=== PATIENT | male | born 1950 | race Caucasian/White ===

== ENCOUNTER 2019-05-18 08:45 | Outpatient (CLI) | payer MEDICARE, SELFPAY ==
--- NOTE | ~2019-05-18 | CT_ITS ---
EXAMINATION: CT abdomen pelvis wo con EXAM DATE: 05/18/2019 09:46 INDICATION: Urothelial cancer, bladder cancer. TECHNIQUE: Spiral CT of the abdomen and pelvis was performed without contrast. Axial, coronal and s agittal images were reviewed. The dose-length product (DLP) for this examination was 355.01 mGy-cm. The exposure was tailored according to patient size (auto mA exposure control), and iterative recons truction (ASIR) was used as additional dose reduction technique. Comparison is made to prior examinat ion from 02/07/2019. FINDINGS: Liver fluid density lesions consistent with cysts up to 2 cm. There is aortoiliac endograft with the abdominal aorta measuring up to 5.0 cm, stable or minimally decreased in size compared to p rior study. Spleen, pancreas, adrenal glands are unremarkable. Patient has bilateral ureteral stents extending through right lower quadrant ileostomy. There is no hydronephrosis. Previous exam reported hyperdense mass at the lower pole of the right kidney which measured near 200 Hounsfield units on the postcontrast study and about 10 mm in size. Size is unchanged and today on th is noncontrast study it measures about 100 Hounsfield units, could be a hemorrhagic cyst. There is a similar appearing 4 mm lesion along the posterior cortex of this kidney as well. Difficult to exclude small solid neoplasm. There are other renal lesions consistent with cysts and hemorrhagic cysts. Ga llbladder is unremarkable. No biliary obstruction. Prostatectomy and cystectomy. There is no retro peritoneal or pelvic lymphadenopathy. Status post pelvic lymph node dissection. The appendix is not positively visualized. There is no pericecal inflammatory change to suggest appe ndicitis. There is mild sigmoid colonic diverticulosis. There is no adjacent inflammatory change to suggest diverticulitis. The stomach and small bowel are unremarkable. There is expected amount of co lonic stool. No free intraperitoneal gas. The heart is normal in size. There are no pericardial or pleural effusions. Several left lung base calcified granulomas. There are no osteoblastic or ost eolytic lesions identified. IMPRESSION: 1. No evidence of metastatic disease. 2. Stable renal lesions which could be cysts and hemorrhagic cysts. Difficult to exclude small right renal solid cancer. Reviewed, dictated and finalized at location A. FIXER
[2019-05-18 09:30] LABS: Blood Urea Nitrogen 32 mg/dL (8-26); Estimated Glomerular Filt Rate 25
== END 2019-05-18 08:46 | disposition home or self-care (01) ==
PROVIDERS: Visit Provider Internal Medicine Hematology & Oncology
DX: C67.9 Malignant neoplasm of bladder, unspecified (principal)
CPT/HCPCS: 74176

== ENCOUNTER 2019-10-02 13:21 | Outpatient (CLI) | payer MEDICARE, SELFPAY ==
--- NOTE | ~2019-10-02 | CT_ITS ---
EXAMINATION: CT abdomen pelvis wo con DATE: 10/02/2019 13:38 INDICATION: Urothelial carcinoma of bladder. TECHNIQUE: Computed tomography (CT) of the abdomen and pelvis was performed without intravenous contr ast. Automated exposure control and iterative reconstruction technique were employed. The dose-length product was 521.99 mGy-cm. COMPARISON: CT abdomen and pelvis 05/18/2019, 02/07/19, 09/20/18 FINDINGS: The visualized portions of the lung bases demonstrate calcified left lung nodules, consiste nt with old granulomatous disease. No pleural effusion. The heart size is normal. No pericardial effu mason. There are cysts in the liver measuring up to 2.1 cm. The gallbladder, pancreas, and adrenal gla nds are normal. Calcifications in the spleen are consistent with old granulomatous disease. There are cysts in right kidney measuring up to 2.6 cm. There are 2 hemorrhagic cysts in right kidney with the larger measuring 9 mm. There is an 11 mm mass in right kidney measuring soft tissue attenuation that was hyperdense on the postcontrast CT on 02/07/19 suspicious for renal cell carcinoma. There is a 1. 3 cm mass in left kidney measuring soft tissue attenuation with similar attenuation on the prior post contrast CT, likely a hemorrhagic cyst. There are changes of cystectomy with ileal conduit. There are bilateral internal/external ureteral stents. There is a 4.7 cm fusiform aneurysm of infrarenal aorta with stent graft in expected position, improved from 5.2 cm on 05/18/19. There is diverticulosis of t he colon without evidence of diverticulitis. There are no dilated loops of bowel. There are surgical clips from pelvic lymph node dissection. There are no pathologically enlarged lymph nodes. There is n o free intraperitoneal fluid. There is severe lumbar and lower thoracic spondylosis. IMPRESSION: 1. Stable 11 mm right kidney mass suspicious for renal cell carcinoma. Consider abdomen CT without an d with contrast. Reviewed, dictated and finalized at location A. IMPRESSION: 1. Stable 11 mm right kidney mass suspicious for renal cell carcinoma. Consider abdomen CT without and with contrast.
== END 2019-10-02 13:22 | disposition home or self-care (01) ==
PROVIDERS: Visit Provider Internal Medicine Hematology & Oncology
DX: C67.9 Malignant neoplasm of bladder, unspecified (principal); N28.89 Other specified disorders of kidney and ureter
CPT/HCPCS: 36415; 74176; 80053; 82570; 84100; 84156; 85025

== ENCOUNTER 2019-10-11 15:27 | Outpatient (CLI) | payer MEDICARE, SELFPAY | END 2019-10-11 15:28 | disposition home or self-care (01) | LOC: ANHLAB 15:28 | PROVIDERS: Visit Provider Internal Medicine Hematology & Oncology | DX: R39.9 Unspecified symptoms and signs involving the genitourinary system (principal) | CPT/HCPCS: 87086; 87088 ==

== ENCOUNTER 2020-02-01 10:21 | Outpatient (CLI) | payer MEDICARE, SELFPAY ==
--- NOTE | ~2020-02-01 | CT_ITS ---
EXAMINATION: CT abdomen pelvis wo con DATE: 02/01/2020 10:39 INDICATION: Urothelial carcinoma of the bladder TECHNIQUE: Computed tomography (CT) of the abdomen and pelvis was performed without intravenous contr ast. The dose-length product (DLP) was 597.88 mGy-cm. Automated exposure control and iterative recons truction technique were employed. COMPARISON: 10/02/2019, 02/07/2019 FINDINGS: Minimal dependent atelectasis is present in the lung bases. The heart size is normal. Cysts of the liver measure up to 2.1 cm in the right hepatic lobe. Punctate calcifications in an otherwise normal spleen likely represent healed granulomatous disease. The pancreas, gallbladder, and adrenal glands are normal. Internal ureteral stents have been removed. An ileal conduit of the right mid abdo men is noted. There is an unchanged 11 mm exophytic mass of the posterolateral right kidney lower robin e. Cysts of the right kidney measure up to 2.6 cm. Again noted are hemorrhagic cysts of the right kid arleen which measure up to 7 mm. An unchanged 11 mm lesion of the left kidney does not demonstrate signi ficant attenuation change when compared to prior contrast enhanced CT, likely proteinaceous cyst. The re are changes of cystectomy. An endoluminal bifurcated aortobiiliac stent graft is noted. Maximum an eurysm size is approximately 4.4 cm, previously 4.7 cm. No pathologically enlarged abdominal or pelvi c lymph nodes are identified. There is no free intraperitoneal gas or evidence of bowel obstruction. Colonic diverticulosis is present without evidence of diverticulitis. There is severe lumbar spondylo sis. IMPRESSION: 1. Changes of cystectomy and ileal conduit formation with interval bilateral internal ureteral stent removal. 2. Stable right kidney mass which could reflect renal cell carcinoma. Follow-up by CT or MRI without and with contrast is recommended. Reviewed, dictated and finalized at location A. TS CARTOONIST IMPRESSION: 1. Changes of cystectomy and ileal conduit formation with interval bilateral in ternal ureteral stent removal. 2. Stable right kidney mass which could reflect renal cell carcinoma. Follow-up by CT or MRI without and with contrast is recommended.
[2020-02-01 10:58] LABS: Basophils Absolute Auto 0.1 K/mm3 (0.0-0.1); Basophils Percent Auto 1.3 % (0.2-1.2); Eosinophils Absolute Auto 0.2 K/mm3 (0-0.3); Eosinophils Percent Auto 3.1 % (0-4.4); Hematocrit 44.7 % (42.0-52.0); Hemoglobin 14.8 g/dL (14.0-18.0); Immature Granulocyte Absolute 0.01 K/mm3 (0.00-0.031); Immature Granulocyte Percent A 0.2 % (0-0.5); Lymphocytes Absolute Auto 1.12 K/mm3 (0.9-3.2); Lymphocytes Percent Auto 20.2 % (18.3-44.2); Mean Corpuscular HGB Conc 33.1 g/dl (32-36); Mean Corpuscular Hemoglobin 30.4 pg (26-34); Mean Corpuscular Volume 91.8 fl (80-100); Mean Platelet Volume 10.7 fl (7.4-10.4); Monocytes Absolute Auto 0.5 K/mm3 (0.1-0.6); Monocytes Percent Auto 8.1 % (2.6-8.5); Neutrophils Absolute Auto 3.7 K/mm3 (1.3-6.7); Neutrophils Percent Auto 67.1 % (45.5-73.1); Platelet Count Result 153 k/mm3 (150-375); Red Blood Count 4.87 M/mm3 (4.6-6.20); Red Cell Distribution Width 14.2 % (11.5-14.5); White Blood Count 5.6 K/mm3 (4.5-10.0)
[2020-02-01 15:04] LABS: Alanine Aminotransferase 15 U/L (4-50); Albumin Level 4.2 g/dL (3.5-5.1); Alkaline Phosphatase 77 U/L (38-126); Anion Gap 6 mmol/L (8-16); Aspartate Amino Transferase 23 U/L (17-59); Bilirubin,Total 0.6 mg/dL (0.2-1.3); Blood Urea Nitrogen 26 mg/dL (9-20); Calcium 9.2 mg/dL (8.4-10.2); Carbon Dioxide 29 mmol/L (22-30); Chloride 105 mmol/L (98-107); Estimated Glomerular Filt Rate 35; Glucose 104 mg/dL (75-110); Potassium 5.1 mmol/L (3.4-5.0); Sodium 140 mmol/L (137-145)
== END 2020-02-01 10:22 | disposition home or self-care (01) ==
PROVIDERS: Visit Provider Internal Medicine Hematology & Oncology
DX: C67.9 Malignant neoplasm of bladder, unspecified (principal)
CPT/HCPCS: 36415; 74176; 80053; 85025

== ENCOUNTER 2020-02-24 00:54 | Outpatient (CLI) | payer MEDICARE, SELFPAY ==
[2020-02-24 18:31] LABS: SARS-CoV-2 RNA PCR Negative
== END 2020-02-24 00:55 | disposition home or self-care (01) ==
LOC: ANHCOVIDDT 00:55
PROVIDERS: Visit Provider Surgery
DX: Z01.812 Encounter for preprocedural laboratory examination (principal); Z20.828 Contact with and (suspected) exposure to other viral communicable diseases
CPT/HCPCS: 87635; C9803; U0003

== ENCOUNTER 2020-02-28 02:57 | Day surgery (SDC) | payer MEDICARE, SELFPAY ==
[2020-02-21 15:52] VITALS: BMI 24.0
[2020-02-28] VITALS (7 sets, daily range): BP systolic 131–151; BP diastolic 66–87; PULSE 47–68; RESP 14–16; TEMP 36.6; O2SAT 96–99
--- NOTE | 2020-02-28 12:55 | PM.HPGS ---
History of Present Illness History of Present Illness Consent: Risks, benefits, and alternatives Of removal of a Port-A-Cath have been discussed and questions answered. Patient agrees to proceed with procedure. Chief complaint: Urethral CA of Bladder Narrative: Luciano Juárez is a 69 year old male patient who had is now I urine half status post cysto prostatectomy done October 17, 2018. He then underwent Port-A-Cath placement and subsequent adjuvant concurrent chemoradiation therapy with cisplatin Um and radiation to the pelvis in the which finished on January [address] scan was done on over the January 31 showing no recurrence of disease related to the previous cystectomy although there is a stable right kidney mass. Dr. Kendall has approved the patient have his Port-A-Cath removed. Review of Systems Constitutional: Constitutional: Reports no additional constitutional complaints, Reports fatigue and Denies malaise Eyes: Eyes: Denies change in vision and Denies loss of vision ENT: Reports Normal hearing present, Denies change in voice, Denies dizziness, Denies hoarseness and Denies sore throat Cardiovascular: Cardiovascular: Denies chest pain, Denies leg edema and Denies dyspnea Respiratory: Respiratory: Denies cough, Denies dyspnea and Denies wheezing Gastrointestinal: Gastrointestinal: Denies hematochezia, Denies change in bowel habits and Denies heartburn Genitourinary: Genitourinary: Denies urinary frequency and Denies urinary incontinence Neurologic: Reports Normal hearing present, Denies confusion, Denies dizziness, Denies loss of vision, Denies memory loss and Denies seizure-like activity Psychiatric: Psychiatric: Denies confusion, Denies depression and Denies memory loss Endocrine: Endocrine: Denies cold intolerance and Reports fatigue Hematologic/Lymphatic: Hematologic/Lymphatic: Denies easy bleeding and Denies easy bruising Allergic/Immunologic: Allergic/Immunologic: Denies wheezing PMFSH Past Medical History Medical History Port-A-Cath in place (~09/26/18) Social History Social History Smoking packs per day: 1 Smoking cigarettes per day: 20.0 Years smoked: 12 Smoking pack-years: 12.00 Smoking status: Former smoker Tobacco type: cigarettes Smoking end date: 03/29/99 Living arrangements: with friend(s) Spiritual care concerns: No Comments family history: No contributing factors found on questioning. Meds Home Medications and Allergies Home Medications Medication Instructions Recorded Confirmed Type aspirin [Aspir-81] 81 mg PO DAILY 01/19/19 02/28/20 History atorvastatin 40 mg PO DAILY 01/19/19 02/28/20 History carvedilol 12.5 mg PO BID 01/19/19 02/28/20 History zinc sulfate 110 mg PO DAILY 01/19/19 02/28/20 History Allergies Allergy/AdvReac Type Severity Reaction Status Date / Time No Known Allergies Allergy Unknown NONE Verified 02/21/20 15:31 Exam Const: General: cooperative, healthy appearing, no acute distress, well developed and alert; No confusion Nutritional Appearance: well nourished Orientation/consciousness: patient oriented x3 and No confusion Limitations: no limitations HENMT: Head: normal to inspection, normocephalic and atraumatic Ears: hearing grossly normal bilaterally General nose exam: Normal external nose present Face and sinus: no edema Mouth: Yes Normal oral and palatal mucosa present and Yes lip normal Throat: posterior oropharynx normal Eyes: General: appearance normal, both eyes and all related structures Sclera: sclerae normal Pupils: Equal, round and reactive pupils present EOM: EOMs intact bilaterally Neck: Neck: normal visual inspection, no lymphadenopathy, trachea midline and supple Resp: Effort & Inspection: normal respiratory effort and able to speak in complete sentences Auscultation: clear to ausculta
--- NOTE | 2020-02-28 13:33 | WPDHPUPDATE1 ---
History and Physical Update Update Date/Time: 02/28/20 13:33 History and Physical has been reviewed, including an updated exam of the patient. There are NO changes in the patient's condition. Risks, benefits, and alternatives have been discussed and questions answered. Patient agrees to proceed with procedure.
[2020-02-28] MEDS: LIDO 2%/EPINEPHRINE 1:100,000 20 ML VIAL 8 ML INFILTRATE (13:57)
--- NOTE | 2020-02-28 14:26 | PM.PROC ---
Procedure Note - Detailed Date of procedure: 02/28/20 Pre-op diagnosis: Urethral CA of Bladder Indwelling Port-A-Cath Procedure performed: Removal of Port-A-Cath Description of procedure: Prior to the procedure the patient was seen in the holding area and the area of proposed surgery was marked. All questions were answered and the patient wished to proceed with removal of the Port-A-Cath. The patient was brought to the operating room and placed supine. The entire right neck, chest, and shoulder were prepped with chlorhexidine. The area was draped off. Time-out was performed confirming patient and site of surgery. Following this a 15 blade knife was used to make incision directly on the scar from the previous port placement. This was done after infiltrating local anesthetic into the area of and inferior to the scar and into the area of the pocket containing the port to some degree using 1% xylocaine with epinephrine. Following this we carefully dissected down to the junction of the port and catheter. Bovie cautery with needle-tip was used to carefully incise the capsule around the port and free up the scar tissue around the junction of the port and catheter. Two Prolene sutures that were holding the port to the underlying fascia were carefully excised with a 15 blade knife and mosquito hemostats. Following this the port was brought up and out of the pocket. Then watching the patient's respirations I carefully removed the catheter in one smooth pull while applying pressure in the lower right neck area at the catheter exit site as the patient was breathing out. Pressure was held for 1 minute. I used Bovie cautery on some the subcutaneous tissues as we waited for good clotting. Again hemostasis was checked in the wound using Bovie cautery for superficial hemostasis in the subcutaneous tissues. Following this closure was obtained with 2 layers. I used buried subcutaneous sutures of 3-0 Vicryl in the subcutaneous layer followed by a running subcuticular closure of 4-0 Vicrylon the skin. Patient tolerated the procedure well. Estimated blood loss was 3 cc Sponge, needle, and instrument counts were correct at the end the procedure and patient was taken to the outpatient recovery area in good condition. Anesthesia: local ( 2% xylocaine with epinephrine) Surgeon: Luciano Arvizu MD Tentering Machine Off Bearer: none Estimated blood loss (mL): 3 Drains: No Packing: No Pathology: none sent Complications: No immediate complications Condition: stable Disposition: other ( outpatient recovery area) Findings: Unremarkable port and catheter that were intact upon removal.
== END 2020-02-28 14:35 | disposition home or self-care (01) ==
PROVIDERS: Visit Provider Surgery
PROC: (CPT 36589; principal; 2020-02-28 15:30)
DX: Z45.2 Encounter for adjustment and management of vascular access device (principal); Z85.59 Personal history of malignant neoplasm of other urinary tract organ; Z92.21 Personal history of antineoplastic chemotherapy; Z92.3 Personal history of irradiation; Z87.891 Personal history of nicotine dependence
CPT/HCPCS: 36590

== ENCOUNTER 2020-06-20 08:17 | Outpatient (CLI) | payer MEDICARE, SELFPAY ==
--- NOTE | ~2020-06-20 | CT_ITS ---
EXAMINATION: CT abdomen pelvis w con DATE: 06/20/2020 09:01 INDICATION: Mid abdominal pain. History of urothelial carcinoma of bladder. Status post appendectomy. TECHNIQUE: Computed tomography (CT) of the abdomen and pelvis was performed without intravenous contr ast. Automated exposure control and iterative reconstruction technique were employed. Exam dose: 549 .05 mGy-cm total exam DLP. COMPARISON: 02/01/2020 CT abdomen pelvis FINDINGS: Several left lower lobe calcified pulmonary granulomas are noted, consistent with old pulmo nary granulomatous disease. No infiltrate or consolidation at the lung bases. Heart size appears within normal range. No pericardial or pleural effusion. Again noted are numerous cysts scattered throughout the left and right hepatic lobe as well as caudat e process, the largest measuring up to 2.5 cm. The gallbladder is present. No bile duct or pancreatic duct dilatation. No pancreatic mass lesion or calcification. Normal splenic size. Normal morphology of the adrenal glands. Occasional bilateral renal cysts, largest situated on the right, measuring up to 3 cm. The bilateral cysts are stable since 02/01/2020. Ileal conduit is noted; status post cystectomy. Descending thoracic aortic aneurysm, measuring up to 3.7 cm diameter. Infrarenal abdominal aortic ane urysm measures up to proxy 4.1 cm maximal diameter. There is an infrarenal endovascular stent of the abdominal aorta and common iliac arteries. No intraperitoneal or retroperitoneal or pelvic mass lesion or adenopathy or ascites. Diverticulosis of the sigmoid colon; no CT evidence of diverticulitis. No bowel obstruction, bowel wa ll thickening, pneumatosis or intraperitoneal free air is detected. Severe degenerative disease at L4-5 and L5-S1. Diffuse osteopenia. No suspicious osteolytic or osteob lastic lesions are noted. IMPRESSION: Numerous hepatic cysts Stable bilateral probable renal cysts Descending thoracic aortic aneurysm Infrarenal abdominal aortic aneurysm with endovascular aortobiiliac endovascular stent Status post cystectomy and ileal conduit; no hydronephrosis Diverticulosis of the sigmoid colon Reviewed, dictated and finalized at Location [facility]. Reviewed, dictated and finalized at location B. IMPRESSION: Numerous hepatic cysts Stable bilateral probable renal cysts Descending thoracic aortic aneurysm Infrarenal abdominal aortic aneurysm with endovascular aortobiiliac endovascula r stent Status post cystectomy and ileal conduit; no hydronephrosis Diverticulosis of the sigmoid colon
[2020-06-20 08:51] LABS: Estimated Glomerular Filt Rate 30
== END 2020-06-20 08:18 | disposition home or self-care (01) ==
LOC: ANHIMG 08:21
PROVIDERS: Visit Provider Internal Medicine Hematology & Oncology
DX: C67.9 Malignant neoplasm of bladder, unspecified (principal); Z90.49 Acquired absence of other specified parts of digestive tract; N28.1 Cyst of kidney, acquired; I71.4 Abdominal aortic aneurysm, without rupture; I71.6 Thoracoabdominal aortic aneurysm, without rupture; K57.30 Diverticulosis of large intestine without perforation or abscess without bleeding; M47.817 Spondylosis without myelopathy or radiculopathy, lumbosacral region; M85.88 Other specified disorders of bone density and structure, other site; K76.89 Other specified diseases of liver; Z95.828 Presence of other vascular implants and grafts
CPT/HCPCS: 74177; Q9967

== ENCOUNTER 2020-10-14 01:19 | Day surgery (SDC) | payer MEDICARE, SELFPAY ==
[2020-09-25 13:34] VITALS: BMI 24.4
[2020-10-14 09:31] VITALS: BP 126/53; PULSE 56; RESP 16; TEMP 35.7; O2SAT 99; BMI 23.2
[2020-10-14] MEDS: LACTATED RINGERS 1,000 ML 150 ML IV CONT (09:37)
--- NOTE | 2020-10-14 10:16 | P.PNAN_ITS ---
Anes - Initial Pre Proc Eval Procedure: Operation Date: 10/14/20 10:30 Proposed Procedures p Esophagogastroduodenoscopy & Screening Colonoscopy - Gen Meléndez MD Date/Time: 10/14/20 10:16 Surgeon: Gen Yi MD Pre Op Diagnosis: neoplasm screening, nausea Patient Data Age: 69 Gender: M Height: 1.88 m Weight: 82.2 kg Last Vital Signs Temp 96.3 F L 10/14/20 09:31 Pulse 56 L 10/14/20 09:31 Resp 16 10/14/20 09:31 BP 126/53 L 10/14/20 09:31 Pulse Ox 99 10/14/20 09:31 Allergies Allergy/AdvReac Type Severity Reaction Status Date / Time No Known Allergies Allergy Unknown NONE Verified 10/14/20 09:30 Home Medications Medication Instructions Recorded Confirmed Type aspirin [Aspir-81] 81 mg PO DAILY 01/19/19 10/14/20 History atorvastatin 40 mg PO DAILY 01/19/19 10/14/20 History carvedilol 12.5 mg PO BID 01/19/19 10/14/20 History zinc sulfate 110 mg PO DAILY 01/19/19 10/14/20 History atorvastatin 40 mg tablet 40 mg PO DAILY 08/01/20 10/14/20 History docusate sodium 100 mg capsule 100 mg PO BID 08/01/20 10/14/20 History Patient hx anesthesia problems: none Family hx anesthesia problems: none PMFSH Past Medical History Medical History (Updated 08/01/20 @ 14:32 by Gen Yi MD) Colon cancer screening Nausea Port-A-Cath in place (~09/26/18) Surgical History Surgical History (Updated 08/01/20 @ 14:32 by Gen Yi MD) History of removal of Port-a-Cath History of urostomy Social History Social History Smoking packs per day: 1 Smoking cigarettes per day: 20.0 Years smoked: 25 Smoking pack-years: 25.00 Smoking status: Former smoker Tobacco type: cigarettes Smoking end date: 03/29/99 Substance use: former Substance use type: marijuana Other substance usage details: every day user Living arrangements: with family Gender identity (if verbalized by the patient): Male Spiritual care concerns: No Anes - Eval Final PreProcedure Day of Procedure 10/14/20 10:16 Patient weight: normal Heart: bradycardia Lungs: clear to auscultation Airway: Mallampati scale class II Neurological: alert and oriented Last oral intake: >/= 8 hours ASA classification: III Emergent: no Anesthetic plan: proceed Anesthesia type and monitoring: general GIVS and standard monitoring Informed Consent: The patient's anesthetic plan and its attendant risks and benefits were discussed with the patient/family/POA. Questions were solicited and answers provided to the satisfaction of the patient/family/POA.
--- NOTE | 2020-10-14 10:17 | PM.HPGS ---
History of Present Illness History of Present Illness Consent: Risks, benefits, and alternatives have been discussed and questions answered. Patient agrees to proceed with procedure. Chief complaint: neoplasm screening, nausea Narrative: Luciano Juárez is a 69 year old male here for egd and colonoscopy. He was diagnosed in 2019 with with stage IIIA (pT4a N1 M0) 9.3 cm high grade invasive urothelial carcinoma. He is status post radical cystoprostatectomy, pelvic lymph node dissection, and bilateral cutaneous ureterostomy urinary diversion. He completed adjuvant pelvic radiotherapy and chemotherapy. He has chronic nausea and never had egd or colonoscopy. Review of Systems Constitutional: Constitutional: Denies headache(s) and Denies weakness Eyes: Eyes: Denies blurry vision ENT: Reports Normal hearing present, Denies headache(s) and Denies neck pain Cardiovascular: Cardiovascular: Denies chest pain and Denies dyspnea Respiratory: Respiratory: Denies dyspnea Gastrointestinal: Gastrointestinal: Reports no additional gastrointestinal complaints Genitourinary: Genitourinary: Denies dysuria Musculoskeletal: Musculoskeletal: Denies neck pain Integumentary/Breasts: Skin/Breast: Denies dry skin Neurologic: Reports Normal hearing present, Denies headache(s) and Denies weakness Psychiatric: Psychiatric: Denies anxiety Endocrine: Endocrine: Denies change in body appearance Hematologic/Lymphatic: Hematologic/Lymphatic: Denies easy bleeding Allergic/Immunologic: Allergic/Immunologic: Denies urticaria PMFSH Past Medical History Medical History (Updated 08/01/20 @ 14:32 by Gen Yi MD) Colon cancer screening Nausea Port-A-Cath in place (~09/26/18) Surgical History Surgical History (Updated 08/01/20 @ 14:32 by Gen Yi MD) History of removal of Port-a-Cath History of urostomy Social History Social History Smoking packs per day: 1 Smoking cigarettes per day: 20.0 Years smoked: 25 Smoking pack-years: 25.00 Smoking status: Former smoker Tobacco type: cigarettes Smoking end date: 03/29/99 Substance use: former Substance use type: marijuana Other substance usage details: every day user Living arrangements: with family Gender identity (if verbalized by the patient): Male Spiritual care concerns: No Meds Home Medications and Allergies Home Medications Medication Instructions Recorded Confirmed Type aspirin [Aspir-81] 81 mg PO DAILY 01/19/19 10/14/20 History atorvastatin 40 mg PO DAILY 01/19/19 10/14/20 History carvedilol 12.5 mg PO BID 01/19/19 10/14/20 History zinc sulfate 110 mg PO DAILY 01/19/19 10/14/20 History atorvastatin 40 mg tablet 40 mg PO DAILY 08/01/20 10/14/20 History docusate sodium 100 mg capsule 100 mg PO BID 08/01/20 10/14/20 History Allergies Allergy/AdvReac Type Severity Reaction Status Date / Time No Known Allergies Allergy Unknown NONE Verified 10/14/20 09:30 Vital Signs Vital Signs - 24 hr 10/14/20 09:31 Temperature 96.3 F L Pulse Rate 56 L Respiratory Rate 16 Blood Pressure 126/53 L Pulse Oximetry 99 Exam Const: General: comfortable and no acute distress HENMT: General nose exam: Normal nares present Eyes: General: appearance normal, both eyes and all related structures Neck: Neck: no JVD Resp: Auscultation: clear to auscultation bilaterally Cardio: Rate: regular rate Rhythm: regular rhythm GI: Inspection: non-distended GI Palp: Yes Soft to palpation Skin: General skin exam: normal color Neuro: General: gait normal Speech: normal speech Extrem: General: normal to inspection Psych: Mental Status: mental status grossly normal Assessment and Plan Assessment and plan (1) Nausea: Code(s): R11.0 - Nausea Status: Acute Assessment and Plan: egd with bx (2) Colon cancer screening: Code(s): Z12.11
[2020-10-14] MEDS: BENZOCAINE (*SP) 60 ML SPRAY CAN (HURRICAINE) 1 SPRAY MUCOUS MEM (10:27)
[2020-10-14 10:53] VITALS: BP 114/75; PULSE 48; RESP 15; O2SAT 99
[2020-10-14 11:03] VITALS: BP 115/70; PULSE 45; RESP 16; O2SAT 99
[2020-10-14 11:13] VITALS: BP 105/62; PULSE 52; RESP 19; O2SAT 100
[2020-10-14 11:23] VITALS: BP 138/74; PULSE 50; RESP 15; O2SAT 100
== END 2020-10-14 11:34 | disposition home or self-care (01) ==
PROVIDERS: Visit Provider Internal Medicine Gastroenterology
PROC: 0DJ08ZZ Inspection of Upper Intestinal Tract, Via Natural or Artificial Opening Endoscopic (ICD-10-PCS; CPT 43235; principal; 2020-10-14 10:30)
DX: Z12.11 Encounter for screening for malignant neoplasm of colon (principal); D12.3 Benign neoplasm of transverse colon; D12.4 Benign neoplasm of descending colon; K29.50 Unspecified chronic gastritis without bleeding; R11.0 Nausea; Z85.51 Personal history of malignant neoplasm of bladder; Z90.6 Acquired absence of other parts of urinary tract; Z93.6 Other artificial openings of urinary tract status; Z87.891 Personal history of nicotine dependence
CPT/HCPCS: 45385; 45380; 43239; 88305; 88342; J2704; J7120

== ENCOUNTER 2021-01-06 13:14 | Outpatient (CLI) | payer MEDICARE, SELFPAY ==
--- NOTE | ~2021-01-06 | CT_ITS ---
EXAMINATION: CT abdomen pelvis w con DATE: 01/06/2021 14:34 INDICATION: Urothelial bladder cancer TECHNIQUE: Computed tomography (CT) of the abdomen and pelvis was performed with 100 cc Omnipaque 350 intravenous contrast. Automated exposure control and iterative reconstruction technique were employe d. Exam dose: 437.60 mGy-cm total exam DLP. COMPARISON: 06/20/2020 CT abdomen pelvis FINDINGS: The lung bases are clear of infiltrate or consolidation. Normal heart size. No pericardial or pleural effusion. There are numerous hepatic cysts measuring up to 2.6 cm dimension. Normal splenic size. No pancreatic mass lesion or calcification or ductal dilatation. The gallbladder is present. No bile duct dilatati on. Normal morphology of the adrenal glands. There is a chronic stable or slightly diminished 11.5 mm mass at the posterior mid to lower aspect of the left kidney, with attenuation of 79 Hounsfield units, likely a cyst with hemorrhagic or proteina ceous content. There are multiple bilateral renal cysts elsewhere, measuring up to 3.3 cm on the right, 7 mm on the left. Relative stable size of an approximately 1 cm lower pole right renal cyst which is diminished i n density compared to 02/07/2019. Status post cystectomy and ileostomy. There is an abdominal aortic and biiliac endovascular stent. Abdominal aortic aneurysm has diminished to 4 cm from reported 5.6 cm dimension on 02/07/2019 No intraperitoneal or retroperitoneal or pelvic mass lesion or adenopathy or ascites is detected. Diverticulosis of the colon; no CT evidence of diverticulitis. No bowel obstruction, bowel wall thick ening, pneumatosis or intraperitoneal free air is detected. Severe degenerative disc disease at L4-5 and L5-S1. Chronic benign sclerotic lesions of the proximal left femur, present on 02/07/2019 IMPRESSION: Hepatic and renal cysts Status post cystectomy and ileostomy Abdominal aortic-biiliac endovascular stent; diminished size of infrarenal abdominal aortic aneurysm sac since 01/2019 Reviewed, dictated and finalized at [facility]. Reviewed, dictated and finalized at [facility]. IMPRESSION: Hepatic and renal cysts Status post cystectomy and ileostomy Abdominal aortic-biiliac endovascular stent; diminished size of infrarenal abdo wilberto aortic aneurysm sac since 01/2019
[2021-01-06 14:21] LABS: Estimated Glomerular Filt Rate 33
== END 2021-01-06 13:15 | disposition home or self-care (01) ==
PROVIDERS: Visit Provider Internal Medicine Hematology & Oncology
DX: C67.9 Malignant neoplasm of bladder, unspecified (principal); K76.89 Other specified diseases of liver; N28.1 Cyst of kidney, acquired; Z90.49 Acquired absence of other specified parts of digestive tract; I71.4 Abdominal aortic aneurysm, without rupture; Z95.828 Presence of other vascular implants and grafts
CPT/HCPCS: 74177; Q9967

== ENCOUNTER 2021-12-29 10:29 | Outpatient (CLI) | payer MEDICARE, SELFPAY ==
--- NOTE | ~2021-12-29 | CT_ITS ---
EXAMINATION: CT abdomen pelvis wo con DATE: 12/29/2021 10:52 INDICATION: Urothelial carcinoma of bladder. TECHNIQUE: Computed tomography (CT) of the abdomen and pelvis was performed without intravenous contr ast. Automated exposure control and iterative reconstruction technique were employed. The dose-length product was 430.14 mGy-cm. COMPARISON: CT abdomen and pelvis 01/06/2021 FINDINGS: The visualized portions of the lung bases demonstrate mild atelectasis. There is mild emphy sema. Calcified left lung nodules are consistent with old granulomatous disease. No pleural effusion. The heart size is normal. No pericardial effusion. There are cysts in the liver measuring up to 2.5 cm. Calcifications in the liver consistent with old granulomatous disease. The gallbladder is normal. Calcifications in the spleen are consistent with old granulomatous disease. The pancreas and adrenal glands are normal. There are cysts in the kidneys measuring up to 3.6 cm on the right. There are hem orrhagic cysts in the kidneys measuring up to 11 mm on the right. There is a stent graft in abdominal aorta and the common iliac arteries. There is a 3.3 cm fusiform aneurysm of abdominal aorta. An ilea l conduit is noted. There is diverticulosis of the colon without evidence of diverticulitis. There ar e no dilated loops of bowel. The appendix is not visualized. There are no pathologically enlarged lym ph nodes. There is no free intraperitoneal fluid. There is a chronic lytic lesion with chondroid matr ix in left femoral neck, likely an enchondroma. There is severe lumbar spondylosis. There is a compre ssion fracture of L4 with 1/5 loss of height, likely subacute. IMPRESSION: 1. No evidence of metastatic disease. Reviewed, dictated and finalized at location [facility].
== END 2021-12-29 10:30 | disposition home or self-care (01) ==
PROVIDERS: Visit Provider Internal Medicine Hematology & Oncology
DX: C67.9 Malignant neoplasm of bladder, unspecified (principal); K57.30 Diverticulosis of large intestine without perforation or abscess without bleeding; J43.9 Emphysema, unspecified; N28.1 Cyst of kidney, acquired; I71.40 Abdominal aortic aneurysm, without rupture, unspecified; M47.816 Spondylosis without myelopathy or radiculopathy, lumbar region; M48.56XA Collapsed vertebra, not elsewhere classified, lumbar region, initial encounter for fracture
CPT/HCPCS: 74176

== ENCOUNTER 2022-03-10 13:43 | Outpatient (CLI) | payer MEDICARE, SELFPAY ==
--- NOTE | ~2022-03-10 | CT_ITS ---
Clinical Indication: Aortic root dilatation CT Scan of the Chest, Abdomen, and Pelvis with Contrast: Technique: Contiguous sections were acquired throughout the chest, abdomen, and pelvis after intraven ous administration of 100 cc of Isovue 300. Three-D reconstructions were performed by the Reclog st. Dose reduction technique was used on this scan by utilizing automated exposure control and iterat makayla reconstruction technique. The dose-length product (DLP) was 903.21 mGy-cm. COMPARISON: 02/07/2019 Findings: There is no evidence of any significant mediastinal, hilar or axillary lymphadenopathy. Ascending aor ta measures up to 4.5 cm in maximum diameter. No aortic dissection seen. Coronary artery calcificatio ns are present. There is no evidence of pleural or pericardial effusion. Minimal biapical paraseptal emphysematous change noted. Calcified left basilar granulomas noted. No o ther pulmonary nodule or consolidation. Several scattered simple hepatic cysts are present. The spleen, pancreas, gallbladder, adrenals and k idneys are within normal limits. Distal abdominal aortic stent graft is present extending into the bi lateral common iliac arteries. Underlying aneurysm measures approximately 3.8 cm in maximum diameter. No lymphadenopathy. No bowel wall thickening or obstruction. No abscess or free air. Patient is status post resection of the urinary bladder. Ileal conduit/neobladder is in place. No pel cathi mass evident. No ascites. Impression: Mild aneurysmal dilatation of the ascending aorta to 4.5 cm in diameter. This is stable since 019. Distal abdominal aortic stent graft, as detailed above. Status post urinary bladder resection with ileal conduit/neobladder present. Reviewed, dictated and finalized at location [] NTER HELPER Impression: Mild aneurysmal dilatation of the ascending aorta to 4.5 cm in diameter. This i s stable since 02/07/2019. Distal abdominal aortic stent graft, as detailed above. Status post urinary bladder resection with ileal conduit/neobladder present.
[2022-03-10 14:29] LABS: Estimated Glomerular Filt Rate 33
== END 2022-03-10 13:44 | disposition home or self-care (01) ==
PROVIDERS: Visit Provider Internal Medicine Cardiovascular Disease
DX: I71.21 Aneurysm of the ascending aorta, without rupture (principal); I35.1 Nonrheumatic aortic (valve) insufficiency
CPT/HCPCS: 71275; 74174; Q9967

== ENCOUNTER 2022-08-07 09:13 | Outpatient (CLI) | payer MEDICARE, SELFPAY ==
[2022-08-07 10:36] LABS: Albumin Level 4.5 g/dL (3.5-5.1); Anion Gap 10 mmol/L (8-16); Blood Urea Nitrogen 38 mg/dL (9-20); Calcium 9.2 mg/dL (8.4-10.2); Carbon Dioxide 25 mmol/L (22-30); Chloride 106 mmol/L (98-107); Estimated Glomerular Filt Rate 37; Glucose 100 mg/dL (65-110); Phosphorus 4.1 mg/dL (2.5-4.5); Potassium 4.8 mmol/L (3.4-5.0); Sodium 141 mmol/L (137-145)
[2022-08-07 10:52] LABS: Appearance Urine Cloudy (Clear); Bacteria Urine 4+ /hpf; Bilirubin Urine Negative (Negative); Blood Urine 1+ (Negative); Color Urine Yellow (Yellow); Glucose Urine UA Negative (Negative); Ketones Urine Negative (Negative); Leukocyte Esterase Ur 2+ LEU/UL (Negative); Nitrate Urine Positive (Negative); Protein Urine Negative (Negative); Specific Grav Ur 1.019 (1.001-1.035); Squamous Epithelial Cell Urine Occasional /hpf (Few); Urobilinogen Urine 0.2 mg/dL (<2.0); WBC Urine 21-50 /hpf
[2022-08-07 10:54] LABS: Add Urine Microscopic? YES
[2022-08-07 10:55] LABS: Creatinine Urine 84.9 mg/dL; Total Protein Urine Random 7 mg/dL; Ur Ttl Prot Creatinine Ratio 0.08 mg/mg (0-0.20)
[2022-08-07 11:05] LABS: Parathyroid Intact 61.5 pg/mL (7.5-53.5)
== END 2022-08-07 09:14 | disposition home or self-care (01) ==
PROVIDERS: Visit Provider Internal Medicine Nephrology
DX: N18.32 Chronic kidney disease, stage 3b (principal)
CPT/HCPCS: 36415; 80069; 81001; 82570; 83970; 84156; 87086; 87088

== ENCOUNTER 2023-01-05 08:52 | Outpatient (CLI) | payer MEDICARE, SELFPAY ==
--- NOTE | ~2023-01-05 | CT_ITS ---
CT of the Abdomen and Pelvis: Indication: Urothelial carcinoma of bladder Technique: 2.5 mm axial scans were obtained through the abdomen and pelvis following intravenous adm inistration of 130 cc of Omnipaque 350. Dose reduction technique was used on this scan by utilizing a utomated exposure control and iterative reconstruction technique. The dose-length product (DLP) was 9 88.99 mGy-cm. COMPARISON: 03/10/2022 Findings: Scans through the lung bases are unremarkable. Multiple hepatic cysts are present. The spleen, pancreas, gallbladder, and adrenal glands are within normal limits. Simple right renal cysts are present. There is a 1.3 cm left renal lesion which is ind eterminate in terms of Hounsfield units (axial image 87). There is an additional similar-appearing in determinate 1 cm left renal lesion (series 3 image 102). Aortic stent graft is in place. No lymphade nopathy. No bowel obstruction or bowel wall thickening. There is no evidence to suggest acute appendicitis. Images through the pelvis were performed. Patient is status post cystectomy, with ileal conduit in pl jostin. No pelvic mass evident. No ascites. There is mild compression deformity of L4, unchanged. Impression: 2 small indeterminate left renal lesions are stable from prior exams. Status post cystectomy. Stable L4 compression deformity. Reviewed, dictated and finalized at location . Impression: 2 small indeterminate left renal lesions are stable from prior exams. Status post cystectomy. Stable L4 compression deformity.
[2023-01-05 09:59] LABS: Estimated Glomerular Filt Rate 35
== END 2023-01-05 08:53 | disposition home or self-care (01) ==
LOC: ANHIMG 08:53
PROVIDERS: Visit Provider Internal Medicine Hematology & Oncology
DX: C67.9 Malignant neoplasm of bladder, unspecified (principal); N28.89 Other specified disorders of kidney and ureter; Z90.6 Acquired absence of other parts of urinary tract
CPT/HCPCS: 36415; 74177; 80069; 81001; 82570; 83883; 84156; 85652; 86038; 86160; 86162; 86334; Q9967

== ENCOUNTER 2023-01-05 10:42 | Outpatient (CLI) | payer MEDICARE, SELFPAY ==
[2023-01-05 12:07] LABS: Albumin Level 4.2 g/dL (3.5-5.1); Anion Gap 7 mmol/L (8-16); Blood Urea Nitrogen 30 mg/dL (9-20); Carbon Dioxide 24 mmol/L (22-30); Chloride 104 mmol/L (98-107); Estimated Glomerular Filt Rate 37; Glucose 90 mg/dL (65-110); Phosphorus 3.3 mg/dL (2.5-4.5); Potassium 5.2 mmol/L (3.4-5.0); Sodium 135 mmol/L (137-145)
[2023-01-05 12:08] LABS: Creatinine Urine 43.3 mg/dL
[2023-01-05 12:11] LABS: Total Protein Urine Random < 5 mg/dL
[2023-01-05 12:12] LABS: Ur Ttl Prot Creatinine Ratio < 0.12 mg/mg (0-0.20)
[2023-01-05 12:17] LABS: Complement C3 92 mg/dL (88-165)
[2023-01-05 12:46] LABS: Appearance Urine Clear (Clear); Bacteria Urine 4+ /hpf; Bilirubin Urine Negative (Negative); Color Urine Yellow (Yellow); Glucose Urine UA Negative (Negative); Ketones Urine Negative (Negative); Leukocyte Esterase Ur 2+ LEU/UL (NEGATIVE); Need Manual Microscopic Reviewed; Nitrate Urine Negative (Negative); Non Pathogenic Casts 0-2; Protein Urine Negative (Negative); RBC Urine 0-2 /hpf (0-2); Squamous Epithelial Cell Urine None seen /hpf (Few); Urobilinogen Urine 0.2 mg/dL (<2.0); WBC Urine 51-100 /hpf (0-3); pH Urine 5.5 (5.0-9.0)
[2023-01-05 12:54] LABS: Add Urine Microscopic? YES; Specific Grav Ur 1.043 (1.001-1.035)
[2023-01-05 13:20] LABS: Erythrocyte Sedimentation Rate 14 mm/hr (0-20)
[2023-01-07 23:28] LABS: Kappa\\Lambda Light Chains 1.53 (0.26-1.65); Lambda Light Chain 20.8 mg/L (5.7-26.3)
[2023-01-08 17:41] LABS: Complement Total CH50 60 U/mL (31-60)
== END 2023-01-05 10:43 | disposition home or self-care (01) ==
LOC: ANHLAB 10:44
PROVIDERS: Internal Medicine Nephrology; Visit Provider Internal Medicine Hematology & Oncology
DX: N18.32 Chronic kidney disease, stage 3b (principal)
CPT/HCPCS: 36415; 80069; 81001; 82570; 83883; 84156; 85652; 86038; 86160; 86162; 86334

== ENCOUNTER 2023-01-07 09:10 | Outpatient (CLI) | payer MEDICARE, SELFPAY ==
[2023-01-16 10:56] LABS: Albumin 32%; Creat 24 Hr 1.55; Pro/Creat Ratio 135; Protein,total, 24 Hr Ur 209 mg/24h
== END 2023-01-07 09:11 | disposition home or self-care (01) ==
LOC: ANHLAB 09:14
PROVIDERS: Visit Provider Internal Medicine Nephrology
DX: N18.32 Chronic kidney disease, stage 3b (principal)
CPT/HCPCS: 86335

== ENCOUNTER 2023-01-08 14:30 | Outpatient (CLI) | payer MEDICARE, SELFPAY | END 2023-01-08 14:31 | disposition home or self-care (01) | PROVIDERS: Visit Provider Internal Medicine Nephrology | DX: C67.5 Malignant neoplasm of bladder neck (principal); R82.81 Pyuria | CPT/HCPCS: 87086; 87088 ==

== ENCOUNTER 2023-01-11 11:30 | Outpatient (CLI) | payer MEDICARE, SELFPAY ==
[2023-01-11 11:57] LABS: Basophils Percent Auto 0.9 % (0.2-1.2); Eosinophils Absolute Auto 0.2 K/mm3 (0-0.3); Eosinophils Percent Auto 3.7 % (0-4.4); Hemoglobin 14.9 g/dL (14.0-18.0); Immature Granulocyte Absolute 0.01 K/mm3 (0.00-0.031); Immature Granulocyte Percent A 0.2 % (0-0.5); Lymphocytes Absolute Auto 1.08 K/mm3 (0.9-3.2); Lymphocytes Percent Auto 23.7 % (18.3-44.2); Mean Corpuscular HGB Conc 32.4 g/dl (32-36); Mean Corpuscular Volume 95.6 fl (80-100); Mean Platelet Volume 10.9 fl (7.4-10.4); Monocytes Absolute Auto 0.4 K/mm3 (0.1-0.6); Monocytes Percent Auto 9.5 % (2.6-8.5); Neutrophils Absolute Auto 2.8 K/mm3 (1.3-6.7); Platelet Count Result 136 k/mm3 (150-375); Red Blood Count 4.81 M/mm3 (4.6-6.20); Red Cell Distribution Width 14.5 % (11.5-14.5); White Blood Count 4.6 K/mm3 (4.5-10.0)
== END 2023-01-11 11:31 | disposition home or self-care (01) ==
LOC: ANHLAB 11:31
PROVIDERS: Visit Provider Internal Medicine Hematology & Oncology
DX: C67.9 Malignant neoplasm of bladder, unspecified (principal)
CPT/HCPCS: 36415; 85025

== ENCOUNTER 2023-10-12 13:42 | Outpatient (CLI) | payer MEDICARE, SELFPAY ==
[2023-10-12 14:05] LABS: Basophils Absolute Auto 0.1 K/mm3 (0.0-0.1); Basophils Percent Auto 1.5 % (0.2-1.2); Eosinophils Absolute Auto 0.2 K/mm3 (0-0.3); Hematocrit 47.8 % (42.0-52.0); Hemoglobin 16.2 g/dL (14.0-18.0); Immature Granulocyte Absolute 0.01 K/mm3 (0.00-0.031); Immature Granulocyte Percent A 0.2 % (0-0.5); Immature Platelet Fraction Pct 6.3 % (0.9-11.2); Lymphocytes Absolute Auto 1.49 K/mm3 (0.9-3.2); Lymphocytes Percent Auto 27.1 % (18.3-44.2); Mean Corpuscular HGB Conc 33.9 g/dl (32-36); Mean Corpuscular Hemoglobin 31.7 pg (26-34); Mean Corpuscular Volume 93.5 fl (80-100); Mean Platelet Volume 10.5 fl (7.4-10.4); Monocytes Absolute Auto 0.5 K/mm3 (0.1-0.6); Monocytes Percent Auto 8.6 % (2.6-8.5); Neutrophils Absolute Auto 3.2 K/mm3 (1.3-6.7); Neutrophils Percent Auto 58.6 % (45.5-73.1); Platelet Count Result 140 k/mm3 (150-375); Red Blood Count 5.11 M/mm3 (4.6-6.20); Red Cell Distribution Width 13.8 % (11.5-14.5); White Blood Count 5.5 K/mm3 (4.5-10.0)
[2023-10-12 15:47] LABS: Alanine Aminotransferase 23 U/L (6-50); Albumin Level 4.6 g/dL (3.5-5.1); Alkaline Phosphatase 60 U/L (38-126); Anion Gap 11 mmol/L (4-12); Aspartate Amino Transferase 24 U/L (17-59); Bilirubin,Total 1.4 mg/dL (0.2-1.3); Blood Urea Nitrogen 37 mg/dL (9-20); Calcium 9.6 mg/dL (8.4-10.2); Carbon Dioxide 27 mmol/L (22-30); Chloride 102 mmol/L (98-107); Estimated Glomerular Filt Rate 35; Glucose 115 mg/dL (65-110); Potassium 4.9 mmol/L (3.4-5.0); Sodium 140 mmol/L (137-145)
== END 2023-10-12 13:43 | disposition home or self-care (01) ==
LOC: ANHLAB 13:44
PROVIDERS: Visit Provider Internal Medicine Hematology & Oncology
DX: C67.9 Malignant neoplasm of bladder, unspecified (principal)
CPT/HCPCS: 36415; 80053; 85025; 85055

== ENCOUNTER 2023-10-13 10:36 | Outpatient (CLI) | payer MEDICARE, SELFPAY ==
--- NOTE | ~2023-10-13 | CT_ITS ---
Non-contrast CT scan of the Abdomen and Pelvis Clinical indication: Bladder carcinoma Technique: 2.5 mm axial scans were obtained through the abdomen and pelvis without intravenous or or al contrast. Dose reduction technique was used on this scan by utilizing automated exposure control a nd iterative reconstruction technique. The dose-length product (DLP) was 651.68 mGy-cm. COMPARISON: 01/05/2023 Findings: Images through the lung bases reveal no abnormalities. Bilateral renal cysts are present, including probable small hyperdense cysts. No hydronephrosis. Stable hepatic cysts. The spleen, pancreas, gallbladder, and adrenals appear normal. Aortic stent gra ft is in place, unchanged.. There is no evidence of bowel obstruction. Images through the pelvis were performed. There is no evidence of ascites or lymphadenopathy. Status post cystectomy with ileal conduit. No pelvic mass evident. Stable L4 compression deformity. Impression: No evidence of recurrent malignancy or metastatic disease. Status post cystectomy with ileal conduit. Probable hyperdense renal cysts, though small solid lesions are not completely excluded. Reviewed, dictated and finalized at [facility]. Impression: No evidence of recurrent malignancy or metastatic disease. Status post cystectomy with ileal conduit. Probable hyperdense renal cysts, though small solid lesions are not completely excluded.
== END 2023-10-13 10:37 ==
LOC: GOSHIMG 10:36
PROVIDERS: PCP Internal Medicine Hematology & Oncology; Visit Provider Internal Medicine Hematology & Oncology
DX: C67.9 Malignant neoplasm of bladder, unspecified (principal); Z90.6 Acquired absence of other parts of urinary tract; Z93.6 Other artificial openings of urinary tract status
CPT/HCPCS: 74176

== ENCOUNTER 2024-06-27 09:45 | Outpatient (CLI) | payer MEDICARE, SELFPAY ==
--- NOTE | ~2024-06-27 | CT_ITS ---
Non-contrast CT scan of the Abdomen and Pelvis Clinical indication: Bladder carcinoma Technique: 2.5 mm axial scans were obtained through the abdomen and pelvis without intravenous or or al contrast. Dose reduction technique was used on this scan by utilizing automated exposure control a nd iterative reconstruction technique. The dose-length product (DLP) was 661.00 mGy-cm. COMPARISON: 10/13/2023 Findings: Images through the lung bases reveal no abnormalities. There is no evidence of renal or ureteral calculi. The kidneys and the ureters are nondilated. Probab le small bilateral hyperdense renal cysts, stable from prior exam. Additional simple cyst in the righ t kidney is unchanged. Stable hepatic cysts. The spleen, pancreas, gallbladder, and adrenals appear normal. Aortic stent gra ft in place. There is no evidence of bowel obstruction. Images through the pelvis were performed. There is no evidence of ascites or lymphadenopathy. Status post cystectomy with ileal conduit. No pelvic mass seen. Impression: Status post cystectomy with ileal conduit. No distinct evidence for recurrent malignancy or metastati c disease. Probable small bilateral hyperdense renal cysts, stable from prior exam. Reviewed, dictated and finalized at location M. Impression: Status post cystectomy with ileal conduit. No distinct evidence for recurrent m alignancy or metastatic disease. Probable small bilateral hyperdense renal cysts, stable from prior exam.
[2024-06-27 10:18] LABS: Estimated Glomerular Filt Rate 28
--- OUTSIDE RECORDS SUMMARY | 2024-06-27 10:40 | XMS_ITS ---
Author Organization [facility] Address [address] [place] [address] Phone Care Team Providers Care Coupling Machine Operator Name Role Phone Unavailable Primary Care Provider Unavailabl e Active Problems Problem Noted Date Diagnosed Date Cardiorenal disease 12/18/2019 CKD (chronic kidney disease) stage 3, GFR 30-59 ml/min 08/11/2019 Protein-calorie malnutrition, severe 10/05/2018 Palliative care encounter 10/05/2018 Atherosclerosis of [place] co ronary artery of [place] heart without angina pectoris 09/26/2018 Ischemic cardiomyopathy 09/26/2018 Hematuria 09/20/2018 Bladder mass 09/20/2018 Microcytic anemia 09/20/2018 Elevated troponin 09/20/2018 Generalized weakness 09/20/2018 Aneurysm of infrarenal abdominal aorta 9 Acute blood loss anemia Aortic valve stenosis Preoperative cardiovascular examination Cancer related pain Physical debility ACP (advance care planning) LARA (dyspnea on exertion) Anorexia Situational mixed anxiety and depressive disorde r Slow transit constipation Palliative care by specialist Obstructive uropathy Urothelial carcinoma of bladder Metabolic acidosis with norm al anion gap and failure of bicarbonate regeneration Hypomagnesemia Current Treatment and Therapy Plans No current plan information found. Past Treatment and Therapy Plans No past plan information found. Lifetime Dose Tracking * Chemical Lifetime Dose Automatic Entry Manual Entr y Effective Dose 68.3 mSv 68.3 mSv 0 mSv Total DLP 4,438 DLP 4,438 DLP 0 DLP CTDIvol Max 61.8 mGy 61.8 mGy 0 mGy CTDIvol Min 24.4 mGy 24.4 mGy 0 mGy Resolved Problems Problem Noted Date Diagnosed Date Resolved Date ABNER (acute kidney injury) 09/20/2018 ATN (acute tubular necrosis) 08/11/2019 Pulmonary edema with left heart failure 12/06/2018
--- OUTSIDE RECORDS SUMMARY | 2024-06-27 10:40 | XMS_ITS | Referral Summary ---
Author Organization [facility] Address [facility] [place] [address] Care Team Providers Care Shearer Helper Name Role Phone No, Physician Primary Care Provider [phone] Allergies No known active allergies Medications aspirin 81 mg enteric coated tablet Take 1 tablet (81 mg total) by mouth daily Active zinc sulfate 220 mg tablet Take 200 mg by mouth daily Active ascorbic acid, vitamin C, 100 mg tablet,chewable Take 1 tablet/chew tab (100 mg total) by mouth Active cholecalciferol (VITAMIN D-3) 5,000 unit capsule Take 1 capsule (5,000 Units total) by mouth daily Active omeprazole (PriLOSEC) 20 mg capsule Take 1 capsule (20 mg total) by mouth daily 1 Active loratadine (CLARITIN REDITABS) 10 mg disintegrating tablet Apply 1 tablet (10 mg total) to cheek daily Active acetaminophen-pamab rom 500-25 mg tablet Take by mouth Active cyanocobalamin (Vitamin B-12) 1,000 mcg tabletIndications:P revention of Vitamin B12 Deficiency Take 1 tablet (1,000 mcg total) by mouth daily Active vitamins [id number] se 2.5 mg-2.5 mg- 5 mg-100 mcg tablet Take by mouth Active carvediloL (COREG) 25 mg tablet TAKE 1 TABLET BY MOUTH TWICE DAILY WITH MEALS 180 tablet 2 4 Active atorvastatin (LIPITOR) 80 mg tablet Take 1 tablet by mouth once daily 90 tablet 2 4 Active magnesium oxide (MAG-OX) 420 mg (253 mg elemental) tablet Take 2 tablets (840 mg total) by mouth daily Active Active Problems Problem Noted Date Diagnosed Date Mixed hyperlipidemia 04/18/2021 Ventricular bigeminy 04/18/2021 Chronic HFrEF (heart failure with reduced ejection fraction) ([facility]) 08/06/2020 Abdominal aortic aneurysm (AAA) without rupture 07/26/2019 CKD (chronic kidney disease) stage 3, GFR 30-59 ml/min 07/26/2019 Coronary artery disease invo lving [place] coronary artery of [place] heart without angina pectoris 11/04/2018 HTN (hypertension), benign 11/04/2018 S/P AAA repair 11/04/2018 Nonischemic cardiomyopathy ([facility]) 11/04/2018 Aortic root dilatation ([facility]) 11/04/2018 Aortic regurgitation 11/04/2018 Nonrheumatic aortic valve stenosis 11/04/2018 Resolved Problems Problem Noted Date Diagnosed Date Resolved Date Dyslipidemia 11/04/2018 04/18/2021 Social History Tobacco Use Types Packs/Day Years Used Date Smoking Tobacco: Former Cigarettes Q uit: 2000 Smokeless Tobacco: Former Tobacco Cessation:Counseling Given: Not Answered Alcohol Use Standard Drinks/Week Comments Not Currently 0 (1 standard drink = 0.6 oz pur e alcohol) Sex and Gender Information Value Date Recorded Sex Assigned at Not on file Legal Sex Male 2:26 PM CDT Gender Identity Not on file Sexual Orientation Not on file Last Filed Vital Signs Vital Sign Reading Time Taken Comments Blood Pressure 120/70 02/07/2024 10:28 AM TEXTILE PIN WORKER Pulse 60 02/07/2024 10:28 AM TEXTILE PIN WORKER Temperature - - Respiratory Rate - - Oxygen Saturation 94% 02/07/2024 10:28 AM TEXTILE PIN WORKER Inhaled Oxygen Concentration - - Weight 95.3 kg (210 lb) 02/07/2024 10:28 AM TEXTILE PIN WORKER Height 188 cm (6' 2 ) 02/07/2024 10:28 AM TEXTILE PIN WORKER Body Mass Index 26.96 02/07/2024 10:28 AM TEXTILE PIN WORKER Plan of Treatment Not on file Insurance MEDICARE MEDICARE Care Teams Shearer Helper Relationship Specialty Start Date End Date No, Physician PCP - General 10/31/18
--- OUTSIDE RECORDS SUMMARY | 2024-06-27 10:40 | XMS_ITS | Encounter Summary ---
Author Organization [facility] Address [address] [place] [address] Care Team Providers Care Librarian Assistant Name Role Phone Unavailable Primary Care Provider Unavailabl e Encounter Details Date Type Department Care Team (Late Contact Info) Description 11/15/2018 Chart Note [facility] Radiation Therapy [address] [place] [address] [place] [address] [place] [address] Social History Tobacco Use Types Packs/Day Years Used Date Smoking Tobacco: Former Cigarettes Smokeless Tobacco: Never Comments:quitted in 1999 Alcohol Use Standard Drinks/Week Comments Yes 0 (1 standard drink = 0.6 oz pur e alcohol) socail Transportation Needs Answer Date Record ed In the past 12 months, has l ack of transportation kept you from medical appointments or from getting medications? No 08/28 In the past 12 months, has l ack of transportation kept you from meetings, work, or from getting things needed for daily living? No 09/20/2018 Sex and Gender Information Value Date Recorded Sex Assigned at Not on file Legal Sex Male 11:43 AM CDT Gender Identity Not on file Sexual Orientation Not on file documented as of this encounter Plan of Treatment Upcoming Encounters Date Type Department Care Team (Late Contact Info) Description 07/04/2024 10:00 AM CDT Office Visit [facility] - [phone] [facility] [address] [place] [address] King Kendall MD [address] [address] documented as of this encounter Visit Diagnoses Not on filedocumented in this encounter
--- OUTSIDE RECORDS SUMMARY | 2024-06-27 10:40 | XMS_ITS | Clinical Summary ---
Author Organization [facility] Address [address] [place] [address] Phone Care Team Providers Care Sheriff Sergeant Name Role Phone Unavailable Primary Care Provider Unavailabl e Allergies No known active allergies Medications aspirin (ECOTRIN EC) 81 mg Tablet, Delayed Release (E.C.) Start on 10/25/2018 Take 1 Tablet by mouth daily. 30 Tablet 10/24/2018 5:20 PM CDT 10/25/2018 Active carvediloL (COREG) 25 mg tablet 25 mg 2 times daily. 04/09/2020 Active atorvastatin (LIPITOR) 80 mg tablet 80 mg. 07/27/2020 Active docusate sodium (COLACE) 100 mg capsule Take 100 mg by mouth 2 times daily. Active loratadine (CLARITIN RediTabs) 10 mg Tablet, Rapid Dissolve Place 10 mg inside cheek daily. Active Active Problems Problem Noted Date Diagnosed Date Cardiorenal disease 12/18/2019 CKD (chronic kidney disease) stage 3, GFR 30-59 ml/min 08/11/2019 Protein-calorie malnutrition, severe 10/05/2018 Palliative care encounter 10/05/2018 Atherosclerosis of [place] ronary artery of [place] heart without angina pectoris 09/26/2018 Ischemic cardiomyopathy [...] gap and failure of bicarbonate regeneration Hypomagnesemia Resolved Problems Problem Noted Date Diagnosed Date Resolved Date ABNER (acute kidney injury) 09/20/2018 ATN (acute tubular necrosis) 08/11/2019 Pulmonary edema with left heart failure 12/06/2018 Encounters Date Type Department Care Team Description 05/17/2024 External Device Data STL ABSTRACTION Provider, Abstract 04/26/2024 External Device Data ST[facility] ABSTRACTION Provider, Abstract 04/20/2024 External Device Data [facility] ABSTRACTION Provider, Abstract from Last 3 Months Social History Tobacco Use Types Packs/Day Years Used Date Smoking Tobacco: Former Cigarettes Smokeless Tobacco: Never Tobacco Cessation:Counseling Given: Not Answered Comments:quitted in 1999 Alcohol Use Standard Drinks/Week Comments Not Currently [...] Sign Reading Time Taken Comments Blood Pressure 137/88 10/20/2023 10:42 AM CDT Pulse 72 10/20/2023 10:42 AM CDT Temperature 36.6 C (97.8 F) 10/20/2023 10:42 AM CDT Respiratory Rate 18 10/20/2023 10:42 AM CDT Oxygen Saturation 95% 10/20/2023 10:42 AM CDT Inhaled Oxygen Concentration - - Weight 85.3 kg (188 lb) 10/20/2023 10:42 AM CDT Height 188 cm (6' 2 ) 01/05/2022 11:36 AM CDT Body Mass Index 24.14 01/05/2022 11:36 AM CDT Plan of Treatment Upcoming Encounters Date Type Department Care Team (Late st Contact Info) Description 07/04/2024 10:00 AM CDT Office Visit [facility] Oncology and Hematology - [place] [address] [facility] [address] [place] [address] King Kendall MD [address] [facility] [address] [place] [address] Health Maintenance Due Date Last Done Comments DTAP/TDAP/TD VACCINES (1 - Tdap) 1969 PNEUMOCOCCAL VACCINE 50+ YEA RS (1 of 2 - PCV) 1969 FIT-DNA Q 3 years 12/22/1995 FIT/FOBT Q 1 year 12/22/1995 Flex Sig/CT Colonography Q 5 years 12/22/1995 ZOSTER VACCINE (1 of 2) 2000 RSV VACCINE (60+ or ) (1 - Risk 60-74 years 1-dose series) 2010 INFLUENZA VACCINE (#1) 2023 COLORECTAL SCREENING 10/14/2030 10/14/2020, 10/15/19 21 Colorectal Cancer Screening 10/14/2030 Abdominal Aortic Aneurysm (AAA) Screening Completed 02/01/2020 Medical Devices Implanted Type Area Residential Green Building Designer Device Identifier Shelf Expiration Date Model / Serial / Lot [place] Excluder Aaa Endoprosthesis Trunk-Ipsilatera l Leg Implanted:Qty: 1 on 10/12/2018 by Cordell Urbano MD at [facility] Graft N/A: Aorta [employer] 01/26/2021 [id number] / [id number] / Description:Trunk-Ipsilatera l Leg (left iliac) component Hemostatic Surgifoam 1gm 1977 - [id number] Implanted:Qty: 1 on 10/12/2018 by Cordell Urbano MD at [facility] Hemostatic N/A: Iliac Artery [employer] [id number] 08/02/20201977 / / [id number] Description:bilateral Hemostat Surg Snow 2x4in 2081 [id number] Implanted:Qty: 1 on 10/17/2018 by Cheri Bella MD at [facility] Hemostatic Pelvis [employer] [id number] 07/26/20202081 / / [id number] Hemostatic Surgicel 4x8in 1951 - [id number] Implanted:Qty: 1 on 10/17/2018 by Cheri Bella MD at [facility] Hemostatic Pelvis J[employer] [id number] 08/26/20221951 / / [id number] Hemostatic Surgicel 4x8in 1951 - [id number] Implanted:Qty: 1 on 10/17/2018 by Cheri Bella MD at [facility] Hemostatic N/A: Pelvis [employer] [id number] 04/28/20231951 / / [id number] Hemostat Surg Snow 2x4in 2081 [id number] Implanted:Qty: 1 on 10/17/2018 by Cheri Bella MD at [facility] Hemostatic Pelvis J[employer] [id number] 06/26/2020 2082 / / [id number] Port Pwrprt Mri 8fr [id number] - [id number] Implanted:Qty: 1 on 12/16/2018 by Almaz Lopez MD at [facility] Port Right: Chest CR BARD- [employer] [id number] 06/26/2020 [id number] / / [id number] [place] Excluder Aaa Endoprosthesis Contralateral Leg Implanted:Qty: 1 on 10/12/2018 by Cordell Urbano MD at [facility] Stent Right: Iliac Artery [employer] 09/27/2020 [id number] / [id number] / Description:contralateral le g component Gel-Flow Nt 6ml Implanted:Qty: 1 on 10/17/2018 by Cheri Bella MD at [facility] N/A: Pelvis [id number] 01/14/2021 Gel-Flow Nt 6ml Implanted:Qty: 1 on 10/17/2018 by Cheri Bella MD at [facility] Pelvis [id number] 01/14/2021 Explanted Type Area Residential Green Building Designer Device Identifier Shelf Expiration Date Model / Serial / Lot Stent Polaris Ultra [id number] - [id number] Implanted:Qty : 1 on 10/17/2018 by Cheri Bella MD at [facility] Explanted:Qty : 1 on 02/17/2019 by Cheri Bella MD at [facility] Stent Right: Ureter [employer]/BOILER PLANT OPERATOR [id number] 04/13/2021 [id number] / / [id number] Stent Polaris Ultra [id number] - [id number] Implanted:Qty : 1 on 10/17/2018 by Cheri Bella MD at [facility] Explanted:Qty : 1 on 02/17/2019 by Cheri Bella MD at [facility] Stent Left: Ureter [employer]OLOG[employer]/BOILER PLANT OPERATOR [id number] 12/29/2020 [id number] 40 / / [id number] Stent Polaris Ultra [id number] - [id number] Implanted:Qty : 1 on 02/17/2019 by Cheri Bella MD at [facility] Explanted:Qty : 1 on 11/03/2019 by Cheri Bella MD at [facility] Stent Left: Ureter [employer]/BOILER PLANT OPERATOR [id number] 08/14/2021 [id number] / / [id number] Stent Polaris Ultra [id number] - [id number] Implanted:Qty : 1 on 02/17/2019 by Cheri Bella MD at [facility] Explanted:Qty : 1 on 11/03/2019 by Cheri Bella MD at [facility] Stent Right: Ureter [employer]/BOILER PLANT OPERATOR [id number] 08/14/2021 [id number] / / [id number] Procedures Procedure Name Priority Date/Time Associated Diagnosis Comments CT ABDOMEN PELVIS WO CONTRAST Routine 02/01/2020 Urothelial carcinoma of bladder (CMS/HCC) from Last 3 Months or Most Recently Relevant to Health Maintenance Results * CT ABDOMEN PELVIS WO CONTRAST (02/01/2020) Anatomical Region Laterality Modality Abdomen Computed Tomogra phy King Kendall MD CT ORDERABLES Final Result from Last 3 Months or Most Recently Relevant to Health Maintenance Insurance MEDICARE PART A AND B RX [place] PLANS (INTERNAL) [facility] Plans MEDICARE PART A AND B Advance Directives For more information, please contact: [phone] Documents on File Type Date Recorded Patient Cradle Slide Maker Expl anation Advance Directive POA 10/13/2018 8:19 AM A dvance Directive POA * Full Code (Latest Code Status on File) Date Activated Date Inactivated Comments 11/03/2019 10:36 AM 11/03/2019 4:06 PM * Full Code Date Activated Date Inactivated Comments 02/17/2019 12:47 PM 02/17/2019 9:06 PM * Full Code Date Activated Date Inactivated Comments 12/16/2018 1:24 PM 12/16/2018 5:25 PM * Full Code Date Activated Date Inactivated Comments 12/16/2018 11:22 AM 12/16/2018 1:24 PM * Full Code Date Activated Date Inactivated Comments 10/17/2018 2:23 PM 10/25/2018 1:42 PM
--- OUTSIDE RECORDS SUMMARY | 2024-06-27 10:40 | XMS_ITS | Clinical Summary ---
Author Organization [facility] Address [address] [place] [address] Care Team Providers Care Knowledge Engineer Name Role Phone No, Physician Primary Care Provider [phone] Allergies No known active allergies Medications aspirin [...] mcg total) by mouth daily Active vitamins N1-J0-H1-P66-fqlsyb se 2.5 mg-2.5 mg- 5 mg-100 mcg [...] HFrEF (heart failure with reduced ejection fraction) ([facility]) 08/06/2020 Abdominal aortic aneurysm (AAA) without rupture 07/26/2019 CKD (chronic kidney disease) stage 3, GFR 30-59 ml/min 07/26/2019 Coronary artery disease invo lving [place] coronary artery of [place] heart without angina pectoris 11/04/2018 HTN (hypertension), benign 11/04/2018 S/P AAA repair 11/04/2018 Nonischemic cardiomyopathy ([facility]) 11/04/2018 Aortic root dilatation ([facility]) 11/04/2018 Aortic regurgitation 11/04/2018 Nonrheumatic aortic valve stenosis 11/04/2018 Resolved Problems Problem Noted Date Diagnosed Date Resolved Date Dyslipidemia 11/04/2018 04/18/2021 Surgical History Surgery Date Site/Laterality Comments CARDIAC STENT PLACEMENT BLADDER SURGERY APPENDECTOMY CYST REMOVAL Medical History Medical History Date Comments Hyperlipidemia Cancer (HCC) Family History Medical History Relation Name Comments Lung disease Father Heart disease Mother Relation Name Status Comments Father (Age 74) Mother (Age 64) Social History Tobacco Use Types Packs/Day Years [...] on file Sexual Orientation Not on file Obstetrics History Last Filed Vital Signs Vital Sign Reading Time Taken Comments Blood Pressure 120/70 02/07/2024 10:28 AM WINDOW SHADE RING SEWER Pulse 60 02/07/2024 10:28 AM WINDOW SHADE RING SEWER Temperature - - Respiratory Rate - - Oxygen Saturation 94% 02/07/2024 10:28 AM WINDOW SHADE RING SEWER Inhaled Oxygen Concentration - - Weight 95.3 kg (210 lb) 02/07/2024 10:28 AM WINDOW SHADE RING SEWER Height 188 cm (6' 2 ) 02/07/2024 10:28 AM WINDOW SHADE RING SEWER Body Mass Index 26.96 02/07/2024 10:28 AM WINDOW SHADE RING SEWER Plan of Treatment Health Maintenance Due Date Last Done Comments Colon Cancer Screening-Colonoscopy 1950 Depression Screening 1950 Fall Risk Assessment 1950 Hepatitis C Screening 1950 DTaP/Tdap/Td Vaccine (1 - Tdap) 1961 Hepatitis B Screening 1968 Pneumococcal vaccine 65+ (1 of 2 - PCV) 1969 Zoster Vaccine (1 of 2) 2000 Well Visit 65+ 12/22/2015 Influenza Vaccine (#1) 2023 12/24/2017 Abdominal Aortic Aneurysm (A AA) Screen Completed 03/03/2022, 10/30/2020, 06/20/2020, Additional history exists Insurance MEDICARE MEDICARE Care Teams Knowledge Engineer Relationship Specialty Start Date End Date No, Physician PCP - General 10/31/18
--- OUTSIDE RECORDS SUMMARY | 2024-06-27 10:40 | XMS_ITS | Clinical Summary ---
Author Organization [facility] Address [address], [place] [address] Phone Care Team Providers Care Crosscutter Name Role Phone Unavailable Primary Care Provider Unavailabl e Allergies No known active allergies Medications Medication Sig Dispensed Refills Start Date End Date Status atorvastatin (LIPITOR) 80 MG tablet Take 80 mg by mouth 1 (one) time each day 01/03/2022 Active Ascorbic Acid 100 MG chewable tablet Chew 100 mg Active carvedilol (COREG) 25 MG tablet Take 25 mg by mouth in the morning and 25 mg in the evening. Take with meals. 12/15/2021 Active cholecalciferol (VITAMIN D-3) 125 MCG (5000 UT) capsule Take 5,000 Units by mouth in the morning. Active loratadine (CLARITIN REDITABS) [address] 10 mg into mouth between cheek and gum in the morning. Active Zinc Sulfate 220 (50 Zn) MG tablet Take 200 mg by mouth in the morning. 10/22/2018 Active Active Problems Problem Noted Date Diagnosed Date Chronic kidney disease stage 3B 02/01/2022 Transitional cell carcinoma of bladder 2 Mixed hyperlipidemia 04/18/2021 Chronic systolic heart failure 08/06/2020 Abdominal aortic aneurysm without rupture 2019 Aortic root dilatation 11/04/2018 Aortic valve regurgitation 11/04/2018 Benign hypertension 11/04/2018 Cardiomyopathy 11/04/2018 Coronary atherosclerosis 09/26/2018 Social History Tobacco Use Types Packs/Day Years Used Date Smoking Tobacco: Former Cigarettes Smokeless Tobacco: Never Tobacco Cessation:Counseling Given: Not Answered Alcohol Use Standard Drinks/Week Comments Not Currently 0 (1 standard drink = 0.6 oz pur e alcohol) Sex and Gender Information Value Date Recorded Sex Assigned at Not on file Gender Identity Not on file Sexual Orientation Not on file Last Filed Vital Signs Vital Sign Reading Time Taken Comments Blood Pressure 122/70 01/26/2022 8:45 AM CDT Pulse 72 01/26/2022 8:45 AM CDT Temperature 36.6 C (97.8 F) 01/26/2022 8:45 AM CDT Respiratory Rate - - Oxygen Saturation - - Inhaled Oxygen Concentration - - Weight 79.4 kg (175 lb) 01/26/2022 8:45 AM CDT Height 182.9 cm (6') 01/26/2022 8:45 AM CDT Body Mass Index 23.73 01/26/2022 8:45 AM CDT Plan of Treatment Health Maintenance Due Date Last Done Comments Pneumococcal PPSV23/PCV13 65 + Years / High and Highest Risk (1 of 4 - PCV) 1956 Influenza Vaccine (#1) 2023
== END 2024-06-27 09:46 | disposition home or self-care (01) ==
PROVIDERS: PCP Internal Medicine Hematology & Oncology; Visit Provider Internal Medicine Hematology & Oncology
DX: C67.9 Malignant neoplasm of bladder, unspecified (principal); N28.1 Cyst of kidney, acquired
CPT/HCPCS: 74176

== ENCOUNTER 2024-07-04 09:31 | Outpatient (CLI) | payer MEDICARE, SELFPAY ==
[2024-07-04 09:55] LABS: Basophils Absolute Auto 0.1 K/mm3 (0.0-0.1); Basophils Percent Auto 1.3 % (0.2-1.2); Eosinophils Absolute Auto 0.3 K/mm3 (0-0.3); Hematocrit 43.3 % (42.0-52.0); Hemoglobin 14.9 g/dL (14.0-18.0); Immature Granulocyte Absolute 0.01 K/mm3 (0.00-0.031); Immature Granulocyte Percent A 0.2 % (0-0.5); Lymphocytes Absolute Auto 1.27 K/mm3 (0.9-3.2); Lymphocytes Percent Auto 22.7 % (18.3-44.2); Mean Corpuscular HGB Conc 34.4 g/dl (32-36); Mean Corpuscular Hemoglobin 31.4 pg (26-34); Mean Corpuscular Volume 91.4 fl (80-100); Mean Platelet Volume 11.3 fl (7.4-10.4); Monocytes Absolute Auto 0.5 K/mm3 (0.1-0.6); Monocytes Percent Auto 9.7 % (2.6-8.5); Neutrophils Absolute Auto 3.4 K/mm3 (1.3-6.7); Neutrophils Percent Auto 61.1 % (45.5-73.1); Platelet Count Result 125 k/mm3 (150-375); Red Blood Count 4.74 M/mm3 (4.6-6.20); Red Cell Distribution Width 14.5 % (11.5-14.5); White Blood Count 5.6 K/mm3 (4.5-10.0)
[2024-07-04 09:56] LABS: Blood Urea Nitrogen 25 mg/dL (8-26); Carbon Dioxide 22 mmol/L (22-30); Chloride 108 mmol/L (98-109); Estimated Glomerular Filt Rate 31; Glucose 93 mg/dL (70-105); Ionized Calcium (POC) 1.21 mmol/L (1.11-1.31); Potassium 4.8 mmol/L (3.5-4.9); Sodium 141 mmol/L (138-146)
--- OUTSIDE RECORDS SUMMARY | 2024-07-04 10:24 | XMS_ITS ---
Author Organization [facility] Address [address] [place] [address] Phone Care Team Providers Care Kinder Teacher Name Role Phone Unavailable Primary Care Provider Unavailabl e Active Problems Problem Noted Date Diagnosed Date Cardiorenal disease 12/18/2019 CKD (chronic kidney disease) stage 3, GFR 30-59 ml/min 08/11/2019 Protein-calorie malnutrition, severe 10/05/2018 Palliative care encounter 10/05/2018 Atherosclerosis of [place] co ronary artery of [place] heart without angina pectoris 09/26/2018 Ischemic cardiomyopathy [...]
--- OUTSIDE RECORDS SUMMARY | 2024-07-04 10:24 | XMS_ITS | Clinical Summary ---
Author Organization [facility] Address [address] [place] [address] Phone Care Team Providers Care Die Trouble Shooter Name Role Phone Unavailable Primary Care Provider [...] 10/05/2018 Palliative care encounter 10/05/2018 Atherosclerosis of [place] co ronary artery of [place] heart without angina pectoris 09/26/2018 Ischemic cardiomyopathy [...] Encounters Date Type Department Care Team Description 07/04/2024 10:00 AM CDT Office Visit [facility] Oncology and Hematology [facility] [address] [place] [address] King Kendall MD Urothelial carcinoma of bladder (CMS/HCC) (Primary Dx) 06/27/2024 Orders Only [facility] Oncology and [facility] [address] [place] [address] King Kendall MD 05/17/2024 External Device Data ST[facility] ABSTRACTION Provider, [...] Sign Reading Time Taken Comments Blood Pressure 114/65 07/04/2024 10:00 AM CDT Pulse 58 07/04/2024 10:00 AM CDT Temperature 36 C (96.8 F) 07/04/2024 10:00 AM CDT Respiratory Rate 15 07/04/2024 10:00 AM CDT Oxygen Saturation 95% 07/04/2024 10:00 AM CDT Inhaled Oxygen Concentration - - Weight 93 kg (205 lb) 07/04/2024 10:00 AM CDT Height 188 cm (6' 2 ) 01/05/2022 11:36 AM CDT Body Mass Index 26.32 01/05/2022 11:36 AM CDT Plan of Treatment Health Maintenance [...] 10/14/2030 Abdominal Aortic Aneurysm (AAA) Screening Completed 06/27/2024, 02/01/2020 Medical Devices Implanted Type Area Quality Control Inspector Device Identifier Shelf Expiration Date Model / Serial / Lot Triangle Excluder Aaa Endoprosthesis Trunk-Ipsilatera l Leg Implanted:Qty: 1 on 10/12/2018 by Cordell Urbano MD at [facility] Graft N/A: Aorta [employer] 01/26/2021 [id number] / Description:Trunk-Ipsilatera l Leg (left iliac) component Hemostatic Surgifoam 1gm [id number] Implanted:Qty: 1 on 10/12/2018 by Cordell Urbano MD at [facility] Hemostatic N/A: Iliac Artery J[employer] [id number] 08/02/20201977 [id number] Description:bilateral Hemostat Surg Snow 2x4in 2081 [id number] Implanted:Qty: 1 on 10/17/2018 by Cheri Bella MD at [facility] Hemostatic Pelvis J[employer] [id number] 07/26/20202081 / / [id number] Hemostatic Surgicel 4x8in 1951 - [id number] Implanted:Qty: 1 on 10/17/2018 by Cheri Bella MD at [facility] Hemostatic Pelvis J[employer] [id number] 08/26/20221951 / / [id number] Hemostatic Surgicel 4x8in 1951 - [id number] Implanted:Qty: 1 on 10/17/2018 by Cheri Bella MD at [facility] Hemostatic N/A: Pelvis J[employer] [id number] 04/28/20231951 / / [id number] Hemostat Surg Snow 2x4in 2081 - [id number] Implanted:Qty: 1 on 10/17/2018 by Cheri Bella MD at [facility] Hemostatic Pelvis J[employer] [id number] 06/26/20202081 / / [id number] Port Pwrprt Mri 8fr [id number] - [id number] Implanted:Qty: 1 on 12/16/2018 by Almaz Lopez MD at [facility] Port Right: Chest CR BARD[employer] [id number] 06/26/2020 [id number] / / [id number] Triangle Excluder Aaa Endoprosthesis Contralateral Leg Implanted:Qty: 1 on 10/12/2018 by Cordell Urbano MD at [facility] Stent Right: Iliac Artery [employer] 09/27/2020 [id number] / [id number] / Description:contralateral le g component Gel-Flow Nt 6ml Implanted:Qty: 1 on 10/17/2018 by Cheri Bella MD at [facility] N/A: Pelvis [id number] 01/14/2021 Gel-Flow Nt 6ml Implanted:Qty: 1 on 10/17/2018 by Cheri Bella MD at [facility] Pelvis [id number] 01/14/2021 Explanted Type Area Quality Control Inspector Device Identifier Shelf Expiration Date Model / Serial / Lot Stent Polaris Ultra [id number] - [id number] Implanted:Qty : 1 on 10/17/2018 by Cheri Bella MD at [facility] Explanted:Qty : 1 on 02/17/2019 by Cheri Bella MD at [facility] Stent Right: Ureter [employer]/MANUFACTURER [id number] 04/13/2021 [id number] 40 / / [id number] Stent Polaris Ultra [id number] - [id number] Implanted:Qty : 1 on 10/17/2018 by Cheri Bella MD at [facility] Explanted:Qty : 1 on 02/17/2019 by Cheri Bella MD at [facility] Stent Left: Ureter [employer]/MANUFACTURER [id number] 12/29/2020 [id number] 40 / / [id number] Stent Polaris Ultra [id number] - [id number] Implanted:Qty : 1 on 02/17/2019 by Cheri Bella MD at [facility] Explanted:Qty : 1 on 11/03/2019 by Cheri Bella MD at [facility] Stent Left: Ureter [employer]/MANUFACTURER [id number] 08/14/2021 [id number] 40 / / [id number] Stent Polaris Ultra [id number] - [id number] Implanted:Qty : 1 on 02/17/2019 by Cheri Bella MD at [facility] Explanted:Qty : 1 on 11/03/2019 by Cheri Bella MD at [facility] Stent Right: Ureter [employer]OLOG[employer]/MANUFACTURER [id number] 08/14/2021 [id number] / / [id number] Procedures Procedure Name Priority Date/Time Associated Diagnosis Comments CT ABDOMEN PELVIS WO CONTRAST Routine 06/27/2024 1:26 PM CDT CREATININE Routine 06/27/2024 1:16 PM CDT from Last 3 Months Results * CT ABDOMEN PELVIS WO CONTRAST (06/27/2024 1:26 PM CDT) Anatomical Region Laterality Modality Abdomen Computed Tomogra phy us King Kendall MD CT ORDERABLES Final Result * CREATININE (06/27/2024 1:16 PM CDT) Blood King Kendall MD CHEMISTRY ORDERABLES Final Resu lt from Last 3 Months Insurance MEDICARE PART A AND B RX [place] PLANS (INTERNAL) [facility] Plans MEDICARE PART A AND B Advance Directives For more information, please contact: [phone] Documents on File Type Date Recorded Patient Aircraft Skin Burnisher Expl anation Advance Directive POA 10/13/2018 8:19 [...]
--- OUTSIDE RECORDS SUMMARY | 2024-07-04 10:24 | XMS_ITS | Clinical Summary ---
Author Organization [facility] Address [address] [place] [address] Care Team Providers Care Medical Records Receptionist Name Role Phone No, Physician Primary Care Provider [phone] Allergies No known active allergies Medications aspirin [...] mcg total) by mouth daily Active vitamins Q6-U4-N4-N63-xeijlf se 2.5 mg-2.5 mg- 5 mg-100 mcg [...] HFrEF (heart failure with reduced ejection fraction) ([facility]) 08/06/2020 Abdominal aortic aneurysm (AAA) without rupture 07/26/2019 CKD (chronic kidney disease) stage 3, GFR 30-59 ml/min 07/26/2019 Coronary artery disease invo lving [place] coronary artery of [place] heart without angina pectoris 11/04/2018 HTN (hypertension), benign 11/04/2018 S/P AAA repair 11/04/2018 Nonischemic cardiomyopathy ([facility]) 11/04/2018 Aortic root dilatation ([facility]) 11/04/2018 Aortic regurgitation 11/04/2018 Nonrheumatic aortic valve [...] Comments Blood Pressure 120/70 02/07/2024 10:28 AM ROTARY ENVELOPE MACHINE OPERATOR Pulse 60 02/07/2024 10:28 AM ROTARY ENVELOPE MACHINE OPERATOR Temperature - - Respiratory Rate - - Oxygen Saturation 94% 02/07/2024 10:28 AM ROTARY ENVELOPE MACHINE OPERATOR Inhaled Oxygen Concentration - - Weight 95.3 kg (210 lb) 02/07/2024 10:28 AM ROTARY ENVELOPE MACHINE OPERATOR Height 188 cm (6' 2 ) 02/07/2024 10:28 AM ROTARY ENVELOPE MACHINE OPERATOR Body Mass Index 26.96 02/07/2024 10:28 AM ROTARY ENVELOPE MACHINE OPERATOR Plan of Treatment Health Maintenance Due Date [...] history exists Insurance MEDICARE MEDICARE Care Teams Medical Records Receptionist Relationship Specialty Start Date End Date No, Physician PCP - General 10/31/18
--- OUTSIDE RECORDS SUMMARY | 2024-07-04 10:24 | XMS_ITS | Encounter Summary ---
Author Organization [employer] Address [address] [place] [address] Care Team Providers Care Nematology Teacher Name Role Phone Unavailable Primary Care Provider Unavailabl e Encounter Details Date Type Department Care Team (Late st Contact Info) Description 11/15/2018 Chart Note [facility] Radiation Therapy [address] [place] [address] [place] [address] [place] [address] Social History Tobacco Use Types [...] as of this encounter Plan of Treatment Not on file documented as of this encounter Visit Diagnoses Not on filedocumented in this encounter
--- OUTSIDE RECORDS SUMMARY | 2024-07-04 10:24 | XMS_ITS | Referral Summary ---
Author Organization [facility] Address [facility] [place] [address] Care Team Providers Care Tentering Machine Feeder Name Role Phone No, Physician Primary Care Provider [phone] Allergies No known active allergies Medications aspirin [...] mcg total) by mouth daily Active vitamins Q3-U2-V1-L98-dhewok se 2.5 mg-2.5 mg- 5 mg-100 mcg [...] HFrEF (heart failure with reduced ejection fraction) [place] [place]/2020 Abdominal aortic aneurysm (AAA) without rupture 07/26/2019 CKD (chronic kidney disease) stage 3, GFR 30-59 ml/min 07/26/2019 Coronary artery disease invo lving [place] coronary artery of [place] heart without angina pectoris 11/04/2018 HTN (hypertension), benign 11/04/2018 S/P AAA repair 11/04/2018 Nonischemic cardiomyopathy [place] [place] 11/04/2018 Aortic root dilatation [place] [place] 11/04/2018 Aortic regurgitation 11/04/2018 [...] Comments Blood Pressure 120/70 02/07/2024 10:28 AM AMERICAN INDIAN POLICY SPECIALIST Pulse 60 02/07/2024 10:28 AM AMERICAN INDIAN POLICY SPECIALIST Temperature - - Respiratory Rate - - Oxygen Saturation 94% 02/07/2024 10:28 AM AMERICAN INDIAN POLICY SPECIALIST Inhaled Oxygen Concentration - - Weight 95.3 kg (210 lb) 02/07/2024 10:28 AM AMERICAN INDIAN POLICY SPECIALIST Height 188 cm (6' 2 ) 02/07/2024 10:28 AM AMERICAN INDIAN POLICY SPECIALIST Body Mass Index 26.96 02/07/2024 10:28 AM AMERICAN INDIAN POLICY SPECIALIST Plan of Treatment Not on file Insurance MEDICARE MEDICARE Care Teams Tentering Machine Feeder Relationship Specialty Start Date End Date No, Physician PCP - General 10/31/18
--- OUTSIDE RECORDS SUMMARY | 2024-07-04 10:24 | XMS_ITS | Encounter Summary ---
Author Organization [facility] Address [address] [place] [address] Care Team Providers Care Research Support Specialist Name Role Phone Unavailable Primary Care Provider Unavailabl e Reason for Referral * CT Scan (Routine) - Open Specialty Diagnoses / Procedures Referred By Marcelo warren Referred To Contact Diagnoses Urothelial carcinoma of bladder (CMS/HCC) Procedures CT ABDOMEN PELVIS WO CONTRAST King Kendall MD [address] [place] [address] Phone: tel: fax: Referral ID Status Reason Start Date Expiration Date Visits Re quested Visits Authorized [id number] Open 07/04/2024 08/04/2025 1 1 Encounter Details Date Type Department Care Team (Late st Contact Info) Description 07/04/2024 10:00 AM CDT Office Visit [facility] Oncology and Hematology - Sai [facility] Kirsten Paulson [address] [address] King Kendall MD [address] [place] [address] Urothelial carcinoma of bladder (CMS/HCC) (Primary Dx) Social History Tobacco Use Types Packs/Day Years [...] on file documented as of this encounter Last Filed Vital Signs Vital Sign Reading Time Taken Comments Blood Pressure 114/65 07/04/2024 10:00 AM CDT Pulse 58 07/04/2024 10:00 AM CDT Temperature 36 C (96.8 F) 07/04/2024 10:00 AM CDT Respiratory Rate 15 07/04/2024 10:00 AM CDT Oxygen Saturation 95% 07/04/2024 10:00 AM CDT Inhaled Oxygen Concentration - - Weight 93 kg (205 lb) 07/04/2024 10:00 AM CDT Height - - Body Mass Index 26.32 01/05/2022 11:36 AM CDT documented in this encounter Plan of Treatment Scheduled Orders Name Type Priority Associated Diagnoses Orde r Schedule CBC WITH DIFFERENTIAL Lab Stat Urothelial carcinoma of bladder (CMS/HCC) Expected: 07/04/2024, Expires: 07/04/2025 COMPREHENSIVE METABOLIC PANEL Lab Stat Urothelial carcinoma of bladder (CMS/HCC) Expected: 07/04/2024, Expires: 07/04/2025 CT ABDOMEN PELVIS WO CONTRAST Imaging Routine Urothelial carcinoma of bladder (CMS/HCC) Expected: 07/04/2025, Expires: 07/04/2025 documented as of this encounter Visit Diagnoses Diagnosis Urothelial carcinoma of bladder (CMS/HCC)- Primary documented in this encounter
--- OUTSIDE RECORDS SUMMARY | 2024-07-04 10:24 | XMS_ITS | Clinical Summary ---
Author Organization [facility] Address [address], [place] [address] Phone Care Team Providers Care Junior Network Administrator Name Role Phone Unavailable Primary Care Provider [...] of 4 - PCV) 1956 Influenza Vaccine (Season Ended) 2024
[2024-07-04 12:16] LABS: Alanine Aminotransferase 19 U/L (6-50); Albumin Level 3.9 g/dL (3.5-5.1); Alkaline Phosphatase 66 U/L (38-126); Anion Gap 8 mmol/L (4-12); Aspartate Amino Transferase 21 U/L (17-59); Bilirubin,Total 0.6 mg/dL (0.2-1.3); Blood Urea Nitrogen 25 mg/dL (9-20); Calcium 8.6 mg/dL (8.4-10.2); Carbon Dioxide 23 mmol/L (22-30); Chloride 109 mmol/L (98-107); Estimated Glomerular Filt Rate 35; Glucose 89 mg/dL (65-110); Potassium 4.8 mmol/L (3.4-5.0); Sodium 140 mmol/L (137-145)
== END 2024-07-04 09:32 | disposition home or self-care (01) ==
LOC: ANHLAB 09:33
PROVIDERS: PCP Internal Medicine Hematology & Oncology; Visit Provider Internal Medicine Hematology & Oncology
DX: C67.9 Malignant neoplasm of bladder, unspecified (principal)
CPT/HCPCS: 36415; 80047; 80053; 85025; 85055

== ENCOUNTER 2025-01-18 13:03 | Outpatient (CLI) | payer MEDICARE, SELFPAY ==
--- NOTE | ~2025-01-18 | CT_ITS ---
Exam: CT chest without contrast Clinical History: [Aortic root dilation ] Comparison: [ CTA chest 03/10/2022] Technique: Multiple axial CT images of the chest without with IV contrast. Sagittal and coronal reformatted images were obtained. FINDINGS: Lungs and pleura: [ Tracheobronchial tree is patent. No pneumothorax. No pulmonary mass. No pleural effusion.] Mild biapical scarring. Stable subcentimeter subpleural density in the posterior medial aspect of the right upper lung. Mediastinum and pulmonary leonor: [ No mass or adenopathy.] Axillary/intramammary and supraclavicular: [ No mass or adenopathy.] Heart and great vessels: [ Normal heart size.[ [ No pericardial effusion.] Artery calcifications are noted. Moderate atherosclerotic disease in the thoracic aorta. Proximal ascending thoracic aorta measures 5.0 cm AP x 4.9 cm transverse. Chest Wall: [ Unremarkable.] Upper Abdomen: Grossly stable bilateral hepatic cysts. Right renal cyst. Osseous structures: [ No acute fracture lesion.] [ Multilevel degenerative change in the visualized spine.] Stable old healed fracture of the sternum. Additional findings: [ None of significance.] IMPRESSION: 1. [ Proximal ascending thoracic aorta measures 5.0 cm AP x 4.9 cm transverse. Reviewed, dictated and finalized at location Q.
--- OUTSIDE RECORDS SUMMARY | 2025-01-18 13:57 | XMS_ITS | Clinical Summary ---
Author Organization [facility] Address [address], [place] [address] Phone Care Team Providers Care Regroover Name Role Phone Unavailable Primary Care Provider Unavailabl e Allergies No known active allergies Medications atorvastatin (LIPITOR) 80 MG tablet Take 80 [...] at Not on file Legal Sex Male 8:00 AM MDT Gender Identity Not on file Sexual Orientation [...] Comments Pneumococcal PPSV23/PCV13 65 + Years / Low and Medium Risk (1 of 2 - PCV) 2000 Influenza Vaccine (#1) 2024 Insurance MEDICARE
--- OUTSIDE RECORDS SUMMARY | 2025-01-18 13:57 | XMS_ITS | Encounter Summary ---
Author Organization [facility] Address [address] [place] [address] Care Team Providers Care Digital Sales Assistant Name Role Phone Unavailable Primary Care Provider Unavailabl e Encounter Details Date Type Department Care Team (Late Contact Info) Description 11/15/2018 Chart Note [facility] Radiation Therapy [address] [place] [address] [place] [address] [place] [address] Social History Tobacco Use Types [...] Department Care Team (Late Contact Info) Description 07/04/2025 10:00 AM CDT Office Visit [facility] Oncology and Hematology - Sai [address] [facility] [address] [place] [address] King Kendall MD [address] [address] documented as of this encounter Visit Diagnoses Not on filedocumented in this encounter
--- OUTSIDE RECORDS SUMMARY | 2025-01-18 13:57 | XMS_ITS ---
Author Organization [facility] Address [address] [place] [address] Phone Care Team Providers Care Paint Line Production Supervisor Name Role Phone Unavailable Primary Care Provider Unavailabl e Active Problems Problem Noted Date Diagnosed Date Cardiorenal disease 12/18/2019 CKD (chronic kidney disease) stage 3, GFR 30-59 ml/min 08/11/2019 Protein-calorie malnutrition, severe 10/05/2018 Palliative care encounter 10/05/2018 Atherosclerosis of [place] ronary artery of [place] heart without angina pectoris 09/26/2018 Ischemic cardiomyopathy [...]
--- OUTSIDE RECORDS SUMMARY | 2025-01-18 13:57 | XMS_ITS | Clinical Summary ---
Author Organization [facility] Address [address] [place] [address] Care Team Providers Care Accelerator Operator Name Role Phone No, Physician Primary Care Provider [phone] Allergies No known active allergies Medications aspirin [...] (5,000 Units total) by mouth daily Active loratadine (CLARITIN REDITABS) 10 mg disintegrating tablet Apply 1 tablet (10 mg total) to cheek daily Active acetaminophen-pama brom 500-25 mg tablet Take by mouth Active cyanocobalamin (Vitamin B-12) 1,000 mcg tabletIndications: Prevention of Vitamin B12 Deficiency Take 1 tablet (1,000 mcg total) by mouth daily Active vitamins S2-M6-O3-U21-xwyoe ase 2.5 mg-2.5 mg- 5 mg-100 mcg tablet Take by mouth Active magnesium oxide (MAG-OX) 420 mg (253 mg elemental) tablet Take 2 tablets (840 mg total) by mouth daily Active atorvastatin (LIPITOR) 80 mg tablet Take 1 tablet by mouth once daily 90 tablet 2 11/04/19 25 Active carvediloL (COREG) 25 mg tablet TAKE 1 TABLET BY MOUTH TWICE DAILY WITH MEALS 180 tablet 2 11/04/19 25 Active omeprazole (PriLOSEC) 20 mg capsule Take 1 capsule (20 mg total) by mouth daily 10/15/19 21 025 Discontinued Active Problems Problem Noted Date Diagnosed Date Mixed hyperlipidemia 04/18/2021 Ventricular bigeminy 04/18/2021 Chronic HFrEF (heart failure with reduced ejection fraction) (CMS/HCC) 08/06/2020 CKD (chronic kidney disease) stage 3, GFR 30-59 ml/min 07/26/2019 Coronary artery disease invo lving [place] coronary artery of [place] heart without angina pectoris 11/04/2018 HTN (hypertension), benign 11/04/2018 S/P AAA repair 11/04/2018 Nonischemic cardiomyopathy (CMS/HCC) 11/04/2018 Aortic root dilatation (CMS/HCC) 11/04/2018 Aortic regurgitation 11/04/2018 Nonrheumatic aortic valve stenosis 11/04/2018 Resolved Problems Problem Noted Date Diagnosed Date Resolved Date Abdominal aortic aneurysm (A AA) without rupture 07/26/2019 01/08/2025 Dyslipidemia 11/04/2018 04/18/2021 Encounters Date Type Department Care Team Description 01/08/2025 2:00 PM CDT Office Visit [facility] Cardiology [address] [place] [address] BlackSarah MD S/P AAA repair (Primary Dx); Coronary artery disease involving [place] coronary artery of [place] heart without angina pectoris; Aortic root dilatation (CMS/HCC) (HCC); Nonrheumatic aortic valve insufficiency; Nonrheumatic aortic valve stenosis; Nonischemic cardiomyopathy (CMS/HCC) (HCC); Stage 3 chronic kidney disease, unspecified whether stage 3a or 3b CKD (HCC) from Last 3 Months Surgical History Surgery Date Site/Laterality Comments CARDIAC STENT PLACEMENT BLADDER SURGERY APPENDECTOMY CYST REMOVAL Medical History Medical History Date Comments Hyperlipidemia Cancer (HCC) Family History Medical History Relation Name Comments Lung disease Father Heart disease Mother Relation Name Status Comments Father (Age 74) Mother (Age 64) Social History Tobacco Use Types Packs/Day Years Used Date Smoking Tobacco: Former Cigarettes Q uit: 1999 Smokeless Tobacco: Former Tobacco Cessation:Counseling Given: Not [...] Sign Reading Time Taken Comments Blood Pressure 116/66 01/08/2025 2:14 PM CDT Pulse 59 01/08/2025 2:14 PM CDT Temperature - - Respiratory Rate - - Oxygen Saturation 98% 01/08/2025 2:14 PM CDT Inhaled Oxygen Concentration - - Weight 93.5 kg (206 lb 3.2 oz) 01/08/2025 2:14 P M CDT Height 188 cm (6' 2) 01/08/2025 2:14 PM CDT Body Mass Index 26.47 01/08/2025 2:14 PM CDT Plan of Treatment Health Maintenance Due Date Last Done Comments Colon Cancer Screening-Colonoscopy 1950 Depression Screening 1950 Fall Risk Assessment 1950 Hepatitis C Screening 1950 DTaP/Tdap/Td Vaccine (1 - Tdap) 1961 Hepatitis B Screening 1968 Pneumococcal vaccine 65+ (1 of 2 - PCV) 1969 Zoster Vaccine (1 of 2) 2000 Well Visit 65+ 12/22/2015 Influenza Vaccine (#1) 2024 12/24/2017 Abdominal Aortic Aneurysm (A AA) Screen Completed 01/08/2025, 03/03/2022, 10/30/2020, Additional history exists Insurance MEDICARE MEDICARE Care Teams Accelerator Operator Relationship Specialty Start Date End Date No, Physician PCP - General 10/31/18
--- OUTSIDE RECORDS SUMMARY | 2025-01-18 13:57 | XMS_ITS | Clinical Summary ---
Author Organization [facility] Address [address] [place] [address] Phone Care Team Providers Care Wiring Technician Name Role Phone Unavailable Primary Care Provider [...] 10/05/2018 Palliative care encounter 10/05/2018 Atherosclerosis of [place] co ronary artery of [place] heart without angina pectoris 09/26/2018 Ischemic cardiomyopathy [...] Encounters Date Type Department Care Team Description 11/14/2024 External Device Data STL ABSTRACTION Provider, Abstract 11/07/2024 External Device Data STL ABSTRACTION Provider, Abstract [...] 10:00 AM CDT Height 188 cm (6' 2) 01/05/2022 11:36 AM CDT Body Mass Index 26.32 01/05/2022 11:36 AM CDT Plan of Treatment Upcoming Encounters Date Type Department Care Team (Late st Contact Info) Description 07/04/2025 10:00 AM CDT Office Visit [facility] Oncology and Hematology - Sai [address] [place] [address] King Kendall MD [address] [facility] [address] [place] [address] Health Maintenance Due Date Last Done Comments DTAP/TDAP/TD VACCINES (1 - Tdap) 1969 PNEUMOCOCCAL VACCINE 50+ YEA RS (1 of 2 - PCV) 1969 FIT-DNA Q 3 years 12/22/1995 FIT/FOBT Q 1 year 12/22/1995 Flex Sig/CT Colonography Q 5 years 12/22/1995 RSV VACCINE (60+ or ) (1 - Risk 50-74 years 1-dose series) 2000 ZOSTER VACCINE (1 of 2) 2000 INFLUENZA VACCINE (#1) 2024 COLORECTAL SCREENING 10/14/2030 10/14/2020, 10/15/19 Colorectal Cancer Screening 10/14/2030 Abdominal Aortic Aneurysm (AAA) Screening Completed 06/27/2024, 02/01/2020 Medical Devices Implanted Type Area Cook Sauce Device Identifier Shelf Expiration Date Model / Serial / Lot [place] Excluder Aaa Endoprosthesis Trunk-Ipsilatera l Leg Implanted:Qty: 1 on 10/12/2018 by Cordell Urbano MD at [facility] Graft N/A: Aorta [employer] 01/26/2021 [id number] / Description:Trunk-Ipsilatera l Leg (left iliac) component Hemostatic Surgifoam 1gm 1977 - [id number] Implanted:Qty: 1 on 10/12/2018 by Cordell Urbano MD at [facility] Hemostatic N/A: Iliac Artery [employer] [id number] 08/02/20201977 / / [id number] Description:bilateral Hemostat Surg Snow 2x4in 2081 - [id number] Implanted:Qty: 1 on 10/17/2018 by Cheri Bella MD at [facility] Hemostatic Pelvis [employer] [id number] 07/26/20202081 / / [id number] Hemostatic Surgicel 4x8in [id number] Implanted:Qty: 1 on 10/17/2018 by Cheri Bella MD at [facility] Hemostatic Pelvis [employer] [id number] 08/26/20221951 / / [id number] Hemostatic Surgicel 4x8in [id number] Implanted:Qty: 1 on 10/17/2018 by Cheri Bella MD at [facility] Hemostatic N/A: Pelvis [employer] [id number] 04/28/20231951 / / [id number] Hemostat Surg Snow 2x4in [id number] Implanted:Qty: 1 on 10/17/2018 by Cheri Bella MD at [facility] Hemostatic Pelvis [employer] [id number] 06/26/2020 2082 / / [id number] Port Pwrprt Mri 8fr [id number] - [id number] Implanted:Qty: 1 on 12/16/2018 by Almaz Lopez MD at [facility] Port Right: Chest CR [employer]ARD[employer] [id number] 06/26/2020 [id number] / / [id number] [place] Excluder Aaa Endoprosthesis Contralateral Leg Implanted:Qty: 1 on 10/12/2018 by Cordell Urbano MD at [facility] Stent Right: Iliac Artery [employer] 09/27/2020 [id number] / [id number] / Description:contralateral le g component Gel-Flow Nt 6ml Implanted:Qty: 1 on 10/17/2018 by Cheri Bella MD at [facility] N/A: Pelvis [id number] 01/14/2021 Gel-Flow Nt 6ml Implanted:Qty: 1 on 10/17/2018 by Cheri Bella MD at [facility] Pelvis [id number] 01/14/2021 Explanted Type Area Cook Sauce Device Identifier Shelf Expiration Date Model / Serial / Lot Stent Polaris Ultra [id number] - [id number] Implanted:Qty : 1 on 10/17/2018 by Cheri Bella MD at [facility] Explanted:Qty : 1 on 02/17/2019 by Cheri Bella MD at [facility] Stent Right: Ureter [employer] [id number] 04/13/2021 [id number] / / [id number] Stent Polaris Ultra [id number] - [id number] Implanted:Qty : 1 on 10/17/2018 by Cheri Bella MD at [facility] Explanted:Qty : 1 on 02/17/2019 by Cheri Bella MD at [facility] Stent Left: Ureter [employer] [id number] 12/29/2020 [id number] / / [id number] Stent Polaris Ultra [id number] - [id number] Implanted:Qty : 1 on 02/17/2019 by Cheri Bella MD at [facility] Explanted:Qty : 1 on 11/03/2019 by Cheri Bella MD at [facility] Stent Left: Ureter [employer] [id number] 08/14/2021 [id number] / / [id number] Stent Polaris Ultra [id number] - [id number] Implanted:Qty : 1 on 02/17/2019 by Cheri Bella MD at [facility] Explanted:Qty : 1 on 11/03/2019 by Cheri Bella MD at [facility] Stent Right: Ureter [employer] [id number] 08/14/2021 [id number] / / [id number] Procedures Procedure Name Priority Date/Time Associated Diagnosis Comments CT ABDOMEN PELVIS WO CONTRAST Routine 06/27/2024 1:26 PM CDT from Last 3 Months or Most Recently [...] Advance Directives For more information, please contact: [phone] Documents on File Type Date Recorded Patient Blow Down Operator Expl anation Advance Directive POA 10/13/2018 8:19 [...]
== END 2025-01-18 13:04 | disposition home or self-care (01) ==
PROVIDERS: PCP Internal Medicine Hematology & Oncology; Visit Provider Internal Medicine Cardiovascular Disease
DX: I77.810 Thoracic aortic ectasia (principal)
CPT/HCPCS: 71250